=== PATIENT | male | born 1985 | race Caucasian/White ===

== ENCOUNTER 2017-06-23 09:04 | Emergency (ER) | payer SELFPAY ==
[2017-06-23 09:06] VITALS: BP 154/106; PULSE 90; RESP 16; TEMP 97.5; O2SAT 97
[2017-06-23] MEDS ORDERED: DEXAMETHASONE SOD PHOS 20 MG/5 ML VIAL IV ONE (10:00)
--- NOTE | 2017-06-23 10:43 | PD ---
HPI . Leg pain Chief Complaint: Pain: Acute or Chronic Time Seen by Provider: 09:35 Travel History International Travel<30 days: No Contact w/Intl Traveler<30days: No Traveled to known affect area: No History of Present Illness HPI This patient presents with the chief complaint of bilateral lower leg pain. Onset was 2 or 3 days ago. He states that he had a mild back injury last week and was seen by chiropractor for adjustment. His back seem to be better. However, he subsequently developed a deep pain in both lower legs from the knees down. The pain has been getting progressively worse. There have been no modifying factors. He states that he now feels weak. He denies any previous similar history. He has not had any bowel or bladder incontinence. He has not been running a fever. PFSH Past Medical History Tetanus Vaccination: > 5 Years Influenza Vaccination: No Social History Alcohol Use: Yes (4-5 beers daily) Tobacco Use: Yes (1/2ppd) Allergies-Medications (Allergen,Severity, Reaction): Coded Allergies: No Known Drug Allergies (Verified Allergy, Unknown, 06/23/17) Reported Meds & Prescriptions Reported Meds & Active Scripts Active No Active Prescriptions or Reported Medications Review of Systems Except as stated in HPI: all other systems reviewed are Neg Physical Exam Narrative GENERAL: Awake and alert and in no acute distress. SKIN: Warm and dry. HEAD: Normocephalic/atraumatic. EYES: Pupils are equal. Extraocular movements are intact. NECK: Normal range of motion. CARDIOVASCULAR: Regular rate and rhythm. RESPIRATORY: Nonlabored respirations. MUSCULOSKELETAL: No tenderness to percussion of the spine. Straight leg raise bilaterally causes leg pain. NEUROLOGICAL: Nonfocal. PSYCHIATRIC: Appropriate mood and affect. Data Data Last Documented VS Vital Signs Date Time Temp Pulse Resp B/P (MAP) Pulse Ox O2 Delivery O2 Flow Rate FiO2 06/23/17 12:10 82 16 127/84 (98) 99 Room Air 06/23/17 09:06 97.5 Orders Orders ^ Saline Lock (06/23/17 09:51) Dexamethasone Inj (Decadron Inj) (06/23/17 10:00) Mri L Spine W/O Contrast (06/23/17 09:51) MDM Medical Decision Making Medical Screen Exam Complete: Yes Emergency Medical Condition: Yes Differential Diagnosis Differential diagnosis of leg pain includes but is not limited to lumbar radiculopathy, arthritis, myalgias, DVT. Narrative Course This patient presents with bilateral lower leg pain. This was preceded by back pain. I am concerned about an HNP. MRI has been ordered. Pain medication was offered but declined. He would like to have some steroids. Last Impressions Lumbar Spine MRI 06/23/17 0951 Signed Impressions: Service Date/Time: Friday, June 23, 2017 12:03 - CONCLUSION: 1. Moderate- sized central disc protrusion at L4-5. 2. Mild to moderate broad-based disc protrusion at L5-S1 with bilateral foraminal encroachment. 3. No acute bony abnormality. Jacky Posey MD The patient will be discharged home on steroids with a referral to Dr. Holt. Diagnosis Primary Impression: Lumbar disc disease with radiculopathy Referrals: Ric Holt MD Patient Instructions: General Instructions, Lumbar Disc Herniation (DC) Med/Other Pt SpecificInfo: Prescription(s) given Scripts Prednisone (Prednisone) 50 Mg Tab 50 MG PO DAILY for 5 Days, #5 TAB 0 Refills Prov: Jaylin Riggins MD 06/23/17 Disposition: 01 DISCHARGE HOME Condition: Stable Jaylin Riggins MD June 23, 2017 10:43
[2017-06-23 12:10] VITALS: BP 127/84; PULSE 82; RESP 16; O2SAT 99
--- NOTE | 2017-06-23 12:25 | RADRPT ---
EXAM DATE/TIME: 06/23/2017 12:03 [facility] COMPARISON: No previous studies available for comparison. INDICATIONS : Pain. MEDICAL HISTORY : None. SURGICAL HISTORY : Toe surgery ENCOUNTER: Initial ACUITY: 2 day PAIN SCORE: 4/10 LOCATION: back TECHNIQUE: Multiplanar multisequence MRI of the lumbar spine was performed without contrast. FINDINGS: The most caudal appearing lumbar vertebra is numbered as L5. VERTEBRAE: Homogeneous signal. Normal alignment. CONUS: Normal level and configuration. T12-L1: The thecal sac has a normal diameter. No evidence of disc bulge or protrusion. The neural foramina are patent bilaterally. L1-L2: The thecal sac has a normal diameter. No evidence of disc bulge or protrusion. The neural foramina are patent bilaterally. L2-L3: The thecal sac has a normal diameter. No evidence of disc bulge or protrusion. The neural foramina are patent bilaterally. L3-L4: The thecal sac has a normal diameter. No evidence of disc bulge or protrusion. The neural foramina are patent bilaterally. L4-L5: Mild degenerative disease is noted. A moderate-sized central disc protrusion with anterior epidural e ffacement is noted. There is no significant thecal sac compression. There are no lateralizing compone nt extending into the neural foramina. L5-S1: Mild to moderate broad-based disc protrusion is identified. There is bilateral neural foraminal effac ement from disc protrusion resulting in moderate foraminal stenosis. There is no significant spinal s tenosis. CONCLUSION: 1. Moderate-sized central disc protrusion at L4-5. 2. Mild to moderate broad-based disc protrusion at L5-S1 with bilateral foraminal encroachment. 3. No acute bony abnormality. Jacky Posey MD on June 23, 2017 at 12:20 Board Certified Radiologist. This report was verified electronically.
[2017-06-23] MEDS ORDERED: PRED50 PO (12:49)
== END 2017-06-23 13:00 | disposition home or self-care (01) ==
LOC: PHED 09:04
DX: M51.16 Intervertebral disc disorders with radiculopathy, lumbar region (principal); F17.200 Nicotine dependence, unspecified, uncomplicated
CPT/HCPCS: 72148; 96374; 99284; J1100

== ENCOUNTER 2017-07-12 01:18 | Emergency (ER) | payer SELFPAY ==
[~2017-07-12] VITALS: Ht 177.8 cm; Wt 98.6 kg
[~2017-07-12 01:18] MED LIST: PRED50 PO
[2017-07-12 01:21] VITALS: BP 133/88; PULSE 112; RESP 18; TEMP 98.2; O2SAT 98
[2017-07-12] MEDS ORDERED: LIDOCAINE HCL 1% 20 ML VIAL INFIL ONE (02:15)
[2017-07-12] MEDS ORDERED: AUGM875T3 PO (02:44)
--- NOTE | 2017-07-12 02:47 | PD ---
HPI Chief Complaint: Bite or Sting Time Seen by Provider: 02:03 Travel History International Travel<30 days: No Contact w/Intl Traveler<30days: No Traveled to known affect area: No History of Present Illness HPI The patient is a 32-year-old male that at approximately 11 PM try to put his dog in the cage and the dog bit his left middle finger. The patient is a go, right-hand dominant. There are several flaps on the end of the finger that he wants held down. He is told that he could have this done without sutures and simply on antibiotics but he preferred to have it tacked down with sutures. He has a pain of 2/10, throbbing pain. He is up-to-date on tetanus. [facility] Past Medical History Medical History: Denies Significant Hx Diminished Hearing: No Immunizations Current: No Tetanus Vaccination: > 5 Years Influenza Vaccination: No Social History Alcohol Use: Yes (4-5 beers daily) Tobacco Use: Yes (1/2ppd) Substance Use: No Allergies-Medications (Allergen,Severity, Reaction): Coded Allergies: No Known Drug Allergies (Verified Allergy, Unknown, 07/12/17) Reported Meds & Prescriptions Reported Meds & Active Scripts Active No Active Prescriptions or Reported Medications Review of Systems Except as stated in HPI: all other systems reviewed are Neg Physical Exam Narrative GENERAL: Well-nourished, well-developed patient in minimal apparent distress with his left long finger discomfort. His vital signs show heart rate of 112 but are otherwise normal. SKIN: Focused skin assessment warm/dry. There are 2 flap lacerations, 3 cm total in length on the palmar side of the left third finger, distal phalanx. These tend to ride up and cannot be bandaged down into place. HEAD: Normocephalic. EYES: No scleral icterus. No injection or drainage. NECK: Supple, trachea midline. No JVD or lymphadenopathy. CARDIOVASCULAR: Regular rate and rhythm without murmurs, gallops, or rubs. RESPIRATORY: Breath sounds equal bilaterally. No accessory muscle use. GASTROINTESTINAL: Abdomen soft, non-tender, nondistended. MUSCULOSKELETAL: No cyanosis, or edema. BACK: Nontender without obvious deformity. No CVA tenderness. Data Data Last Documented VS Vital Signs Date Time Temp Pulse Resp B/P (MAP) Pulse Ox O2 Delivery O2 Flow Rate FiO2 07/12/17 01:21 98.2 112 18 133/88 (103) 98 Orders Orders Ed Discharge Order (07/12/17 02:03) Lidocaine 1% Inj (Xylocaine 1% Inj) (07/12/17 02:15) MDM Medical Decision Making Medical Screen Exam Complete: Yes Emergency Medical Condition: Yes Medical Record Reviewed: Yes Differential Diagnosis Laceration needing suturing, dog bite not needing suturing, Narrative Course The ulceration does not oppose well with simple bandaging. The patient wants the laceration flap supposed and we will give the patient antibiotics and he will have to keep the wound clean and dry and he is told about the risk of infection which is high with a dog bite. Procedures Procedure Narrative Under sterile technique, the finger was soaked in a dilute Betadine solution. A digital block was done and using 5-0 nylon, the flap lacerations were sewn up using 6 stitches. This opposed the skin edges adequately. The patient will be given Augmentin 875 twice daily for 10 days. He needs to return the emergency department in 12 days for suture removal or immediately if he has any problems. Diagnosis Primary Impression: Dog bite of finger Additional Instructions: Return to the emergency department immediately if you have any problems. At night elevate the hand above your heart because this increases blood circulation and decreases chance of infection. You already have a significant chance of infection with a dog bite. Med/Other Pt SpecificInfo: Prescription(s) given Scripts Amoxicillin-Clavulanate (Augmentin) 875-125 Mg Tab 1 TAB PO BID for Infection, #20 TAB 0 Refills Prov: Jovanni Lara MD 07/12/17 Disposition: 01 DISCHARGE HOME Condition: Stable Jovanni Lara MD Jul 12, 2017 02:47
[2017-07-12] MEDS ORDERED: AMOXICILLIN/CLAVULANATE K 875 MG TAB PO ONE (03:00)
== END 2017-07-12 02:58 | disposition home or self-care (01) ==
LOC: PHED 01:18
DX: S61.253A Open bite of left middle finger without damage to nail, initial encounter (principal); F17.200 Nicotine dependence, unspecified, uncomplicated; W54.0XXA Bitten by dog, initial encounter
CPT/HCPCS: 12002

== ENCOUNTER 2017-10-28 14:42 | Inpatient (IN) ==
[2017-10-28 15:28] LABS: Baso # (Auto) 0.1 th/mm3 (0.0-0.2); Baso % (Auto) 1.7 % (0.0-2.0); Eos # (Auto) 0.1 th/mm3 (0.0-0.4); Eos % (Auto) 0.9 % (0.0-4.0); Hematocrit 43.7 % (39.0-51.0); Hemoglobin 15.3 gm/dL (13.0-17.0); Lymph # (Auto) 1.8 th/mm3 (1.0-4.8); Lymph % (Auto) 21.6 % (9.0-44.0); Mean Corpuscular HGB Conc 35.1 % (32.0-36.0); Mean Corpuscular Hemoglobin 39.3 pg (27.0-34.0); Mean Platelet Volume 7.2 fL (7.0-11.0); Mono # (Auto) 0.7 th/mm3 (0.0-0.9); Mono % (Auto) 7.9 % (0.0-8.0); Neut # (Auto) 5.6 th/mm3 (1.8-7.7); Neut % (Auto) 67.9 % (16.0-70.0); Platelet Count 257 th/mm3 (150-450); Red Cell Distribution Width 15.1 % (11.6-17.2); White Blood Count 8.3 th/mm3 (4.0-11.0)
[2017-10-28 15:53] LABS: Alanine Aminotransferase 48 U/L (12-78); Alkaline Phosphatase 87 U/L (45-117); Anion Gap 10 meq/L (5-15); Aspartate Aminotransferase 53 U/L (15-37); Blood Urea Nitrogen 3 mg/dL (7-18); Chloride 97 meq/L (98-107); Glomerular Filtration Rate Greater Than 89 mL/min (>89); Glucose,Random 102 mg/dL (74-106); Sodium 137 meq/L (136-145); Total Protein 7.1 g/dL (6.4-8.2)
[2017-10-28 15:54] LABS: Potassium 2.7 meq/L (3.5-5.1)
--- NOTE | 2017-10-28 16:03 | US ---
EXAM DATE: 10/28/2017 3:59 PM EDT AGE/SEX: 32 years / Male INDICATIONS: Left leg pain and swelling. CLINICAL DATA: This is the patient's initial encounter. Patient reports that signs and symptoms have been present for 3 weeks and indicates a pain score of 4/10. MEDICAL/SURGICAL HISTORY: . Left leg pain and swelling. . Toe surgery. COMPARISON: No prior exams available for comparison. TECHNIQUE: Venous ultrasound of both lower extremities was performed from the inguinal ligament to t he proximal calf. Real-time, color Doppler and spectral tracing, compression and augmentation techni ques were used. FINDINGS: Occlusive deep venous thrombus is noted within the left proximal, mid and distal superfici al femoral, peroneal and posterior tibial veins and nonocclusive deep venous thrombus is noted within the popliteal vein. Left iliac and common femoral veins demonstrate normal color flow. CONCLUSION: 1. Occlusive deep venous thrombus within the left proximal, main and distal superficial femoral, per joshi and posterior tibial veins and nonocclusive deep venous thrombus within the left popliteal vein . Electronically signed by: Emory Garrison MD 10/28/2017 4:02 PM EDT
--- NOTE | 2017-10-28 16:33 | ED ---
HPI General Chief complaint: Extremity Problem,Nontraumatic Stated complaint: left leg pain Time Seen by Provider: 10/28/17 15:14 History of Present Illness HPI narrative: 32 male here for evaluation of left leg pain/swelling for the last month, he has no fever or chills, no trauma, no chest pain. No cough or shortness of breath. He never had these problems in the past, he has no abdominal pain nor nausea or vomiting or any other symptoms. Related Data Home Medications Medication Instructions Recorded Confirmed No Known Home Medications 10/28/17 10/28/17 Previous Rx's Medication Instructions Recorded folic acid 1 mg PO DAILY #30 tab 10/30/17 rivaroxaban [Xarelto] 15 mg PO BID #41 tab 10/30/17 thiamine HCl (vitamin B1) 100 mg PO DAILY #30 tab 10/30/17 Allergies Allergy/AdvReac Type Severity Reaction Status Date / Time No Known Allergies Allergy Verified 10/28/17 14:56 Review of Systems ROS: all other systems reviewed are negative [facility] Medical History Medical History Herniated disc (Acute) Surgical History Surgical History History of toe surgery (Acute) Family History Family History Other Family history non-contributory Social History Social History Substance History: No History of Abuse Second Hand Smoke Exposure: Yes Smoking Status: Current every day smoker Tobacco Type: Cigarettes How Often Do You Have a Drink Containing Alcohol: 4 or more times a week Immunization History Tetanus Immunization: Unsure Exam Narrative Exam Narrative: GENERAL: Alert oriented 3 no acute distress. SKIN: Focused skin assessment warm/dry. HEAD: Atraumatic. Normocephalic. EYES: Pupils equal and round. No scleral icterus. No injection or drainage. ENT: No nasal bleeding or discharge. Mucous membranes pink and moist. NECK: Trachea midline. No JVD. CARDIOVASCULAR: Regular rate and rhythm. No murmur appreciated. RESPIRATORY: No accessory muscle use. Clear to auscultation. Breath sounds equal bilaterally. GASTROINTESTINAL: Abdomen soft, non-tender, nondistended. Hepatic and splenic margins not palpable. MUSCULOSKELETAL: Nonpitting edema left leg, mild calf tenderness, no obvious deformities. No clubbing. No cyanosis. NEUROLOGICAL: Awake and alert. No obvious cranial nerve deficits. Motor grossly within normal limits. Normal speech. PSYCHIATRIC: Appropriate mood and affect; insight and judgment normal. Course Initial Documented Vital Signs Temperature 99.5 F 10/28/17 14:51 Pulse Rate 122 H 10/28/17 14:51 Respiratory Rate 16 10/28/17 14:51 Blood Pressure 130/73 10/28/17 14:51 Pulse Oximetry 96 10/28/17 14:51 Last Documented Vital Signs Temperature 97.1 F L 10/30/17 08:00 Pulse Rate 84 10/30/17 08:00 Respiratory Rate 19 10/30/17 08:00 Blood Pressure 134/91 H 10/30/17 08:00 Pulse Oximetry 98 10/30/17 08:00 Medical Decision Making MDM Narrative Medical decision making narrative: 32 male here for evaluation of left leg edema , he has tachycardia, left lower venous Doppler shows DVT, bilateral PE on CTA, hypokalemia of 2.7 patient received 60 mEq p.o. potassium, patient BMP is normal troponin is normal no evidence of right ventricular strain. Patient will be admitted on heparin drip. Medical Screen Exam Complete: Yes Emergency Medical Condition: Yes Lab Data Result diagrams: 10/30/17 04:50 10/30/17 04:50 Lab Results 10/28/17 10/28/17 10/28/17 Range/Units 15:05 15:05 19:30 CBC w Diff Auto diff final WBC 8.3 (4.0-11.0) th/mm3 RBC 3.90 L (4.50-5.90) mil/mm3 Hgb 15.3 (13.0-17.0) gm/dL Hct 43.7 (39.0-51.0) % MCV 112.0 H (80.0-100.0) fL MCH 39.3 H (27.0-34.0) pg MCHC 35.1 (32.0-36.0) % RDW 15.1 (11.6-17.2) % Plt Count 257 (150-450) th/mm3 MPV 7.2 (7.0-11.0) fL Neut % (Auto) 67.9 (16.0-70.0) % Lymph % (Auto) 21.6 (9.0-44.0) % [place] % (Auto) 7.9 (0.0-8.0) % Eos % (Auto) 0.9 (0.0-4.0) % Baso % (Auto) 1.7 (0.0-2.0) % Neut # (Auto) 5.6 (1.8-7.7) th/mm3 Lymph # (Auto) 1.8 (1.0-4.8) th/mm3 [place] # (Auto) 0.7 (0.0-0.9) th/mm3 Eos # (Auto) 0.1 (0.0-0.4) th/mm3 Baso # (Auto) 0.1 (0.0-0.2) th/mm3 WBC Differential . Differential Comment . PT (9.8-11.6) sec INR Ratio APTT (24.3-30.1) sec Thrombin Time Lupus Anticoagulant (NOT DETECTED) LA PTT Screen (< OR = 40) seconds dRVVT Screen (< OR = 45) seconds LA dRVVT Confirm dRVVT Mix Hexagonal Phase Confirm (NEGATIVE) Protein C Antigen (70-150) % APC Resistance (> OR = 2.1) ratio Protein S Activity (65 - 160) % Antithrombin III Activ (80-120) % normal Factor V Leiden Mutat (Negative) Factor V Leiden Interp Fact V Leiden Review By Factor VIII Activity (50-180) % normal Sodium 137 (136-145) meq/L Potassium 2.7 L* (3.5-5.1) meq/L Chloride 97 L (98-107) meq/L Carbon Dioxide 30.0 (21.0-32.0) meq/L Anion Gap 10 (5-15) meq/L BUN 3 L (7-18) mg/dL Creatinine 0.73 (0.60-1.30) mg/dL Estimated GFR Greater than 89 (>89) mL/min Random Glucose 102 (74-106) mg/dL Calcium 8.0 L (8.5-10.1) mg/dL Magnesium (1.5-2.5) mg/dL Total Bilirubin 0.8 (0.2-1.0) mg/dL AST 53 H (15-37) U/L ALT 48 (12-78) U/L Alkaline Phosphatase 87 (45-117) U/L Troponin I Less than 0.02 L (0.02-0.05) ng/mL B-Natriuretic Peptide (0-100) pg/mL Total Protein 7.1 (6.4-8.2) g/dL Albumin 3.0 L (3.4-5.0) g/dL Homocysteine Cardiovas (<11.4) umol/L Beta-2-GPI IgG Ab (< OR = 20) SGU Beta-2-GPI IgA Ab (< OR = 20) ZION Beta-2-GPI IgM Ab (< OR = 20) [facility] Phosphatidylserine IgG (0-10.9) U/mL Phosphatidylserine IgA (0-19.9) U/mL Phosphatidylserine IgM (0-24.9) U/mL Anti-Cardiolipin IgG Ab GPL Anti-Cardiolipin IgM Ab MPL MTHFR Mutation Detect Prothrombin [id number] Mut 10/28/17 10/28/17 10/29/17 Range/Units 19:30 20:37 03:10 CBC w Diff Auto diff final WBC 8.5 (4.0-11.0) th/mm3 RBC 3.49 L (4.50-5.90) mil/mm3 Hgb 13.8 (13.0-17.0) gm/dL Hct 39.8 (39.0-51.0) % MCV 113.9 H (80.0-100.0) fL MCH 39.6 H (27.0-34.0) pg MCHC 34.8 (32.0-36.0) % RDW 15.7 (11.6-17.2) % Plt Count 213 (150-450) th/mm3 MPV 7.8 (7.0-11.0) fL Neut % (Auto) 72.5 H (16.0-70.0) % Lymph % (Auto) 20.2 (9.0-44.0) % [place] % (Auto) 4.5 (0.0-8.0) % Eos % (Auto) 1.2 (0.0-4.0) % Baso % (Auto) 1.6 (0.0-2.0) % Neut # (Auto) 6.2 (1.8-7.7) th/mm3 Lymph # (Auto) 1.7 (1.0-4.8) th/mm3 [place] # (Auto) 0.4 (0.0-0.9) th/mm3 Eos # (Auto) 0.1 (0.0-0.4) th/mm3 Baso # (Auto) 0.1 (0.0-0.2) th/mm3 WBC Differential . Differential Comment . PT 10.8 (9.8-11.6) sec INR 1.1 Ratio APTT 22.9 L (24.3-30.1) sec Thrombin Time Lupus Anticoagulant (NOT DETECTED) LA PTT Screen (< OR = 40) seconds dRVVT Screen (< OR = 45) seconds LA dRVVT Confirm dRVVT Mix Hexagonal Phase Confirm (NEGATIVE) Protein C Antigen (70-150) % APC Resistance (> OR = 2.1) ratio Protein S Activity (65 - 160) % Antithrombin III Activ (80-120) % normal Factor V Leiden Mutat (Negative) Factor V Leiden Interp Fact V Leiden Review By Factor VIII Activity (50-180) % normal Sodium (136-145) meq/L Potassium (3.5-5.1) meq/L Chloride (98-107) meq/L Carbon Dioxide (21.0-32.0) meq/L Anion Gap (5-15) meq/L BUN (7-18) mg/dL Creatinine (0.60-1.30) mg/dL Estimated GFR (>89) mL/min Random Glucose (74-106) mg/dL Calcium (8.5-10.1) mg/dL Magnesium (1.5-2.5) mg/dL Total Bilirubin (0.2-1.0) mg/dL AST (15-37) U/L ALT (12-78) U/L Alkaline Phosphatase (45-117) U/L Troponin I (0.02-0.05) ng/mL B-Natriuretic Peptide 9 (0-100) pg/mL Total Protein (6.4-8.2) g/dL Albumin (3.4-5.0) g/dL Homocysteine Cardiovas (<11.4) umol/L Beta-2-GPI IgG Ab (< OR = 20) [facility]U Beta-2-GPI IgA Ab (< OR = 20) ZION Beta-2-GPI IgM Ab (< OR = 20) [facility] Phosphatidylserine IgG (0-10.9) U/mL Phosphatidylserine IgA (0-19.9) U/mL Phosphatidylserine IgM (0-24.9) U/mL Anti-Cardiolipin IgG Ab GPL Anti-Cardiolipin IgM Ab MPL MTHFR Mutation Detect Prothrombin [id number] Mut 10/29/17 10/29/17 10/29/17 Range/Units 03:10 03:10 09:21 CBC w Diff WBC (4.0-11.0) th/mm3 RBC (4.50-5.90) mil/mm3 Hgb (13.0-17.0) gm/dL Hct (39.0-51.0) % MCV (80.0-100.0) fL MCH (27.0-34.0) pg MCHC (32.0-36.0) % RDW (11.6-17.2) % Plt Count (150-450) th/mm3 MPV (7.0-11.0) fL Neut % (Auto) (16.0-70.0) % Lymph % (Auto) (9.0-44.0) % [place] % (Auto) (0.0-8.0) % Eos % (Auto) (0.0-4.0) % Baso % (Auto) (0.0-2.0) % Neut # (Auto) (1.8-7.7) th/mm3 Lymph # (Auto) (1.0-4.8) th/mm3 [place] # (Auto) (0.0-0.9) th/mm3 Eos # (Auto) (0.0-0.4) th/mm3 Baso # (Auto) (0.0-0.2) th/mm3 WBC Differential Differential Comment PT (9.8-11.6) sec INR Ratio APTT 38.7 H D (24.3-30.1) sec Thrombin Time Lupus Anticoagulant (NOT DETECTED) LA PTT Screen (< OR = 40) seconds dRVVT Screen (< OR = 45) seconds LA dRVVT Confirm dRVVT Mix Hexagonal Phase Confirm (NEGATIVE) Protein C Antigen (70-150) % APC Resistance (> OR = 2.1) ratio Protein S Activity (65 - 160) % Antithrombin III Activ (80-120) % normal Factor V Leiden Mutat (Negative) Factor V Leiden Interp Fact V Leiden Review By Factor VIII Activity (50-180) % normal Sodium 135 L 138 (136-145) meq/L Potassium 2.8 L* 3.1 L (3.5-5.1) meq/L Chloride 96 L 96 L (98-107) meq/L Carbon Dioxide 32.5 H 32.6 H (21.0-32.0) meq/L Anion Gap 7 9 (5-15) meq/L BUN 6 L 5 L (7-18) mg/dL Creatinine 0.72 0.86 (0.60-1.30) mg/dL Estimated GFR Greater than 89 Greater than 89 (>89) mL/min Random Glucose 111 H 139 H (74-106) mg/dL Calcium 7.6 L 7.8 L (8.5-10.1) mg/dL Magnesium 1.5 (1.5-2.5) mg/dL Total Bilirubin 1.4 H (0.2-1.0) mg/dL AST 39 H (15-37) U/L ALT 42 (12-78) U/L Alkaline Phosphatase 81 (45-117) U/L Troponin I (0.02-0.05) ng/mL B-Natriuretic Peptide (0-100) pg/mL Total Protein 6.3 L D (6.4-8.2) g/dL Albumin 2.7 L (3.4-5.0) g/dL Homocysteine Cardiovas (<11.4) umol/L Beta-2-GPI IgG Ab (< OR = 20) SGU Beta-2-GPI IgA Ab (< OR = 20) ZION Beta-2-GPI IgM Ab (< OR = 20) [facility] Phosphatidylserine IgG (0-10.9) U/mL Phosphatidylserine IgA (0-19.9) U/mL Phosphatidylserine IgM (0-24.9) U/mL Anti-Cardiolipin IgG Ab GPL Anti-Cardiolipin IgM Ab MPL MTHFR Mutation Detect Prothrombin [id number] Mut 10/29/17 10/29/17 10/29/17 Range/Units 10:42 12:09 12:09 CBC w Diff WBC (4.0-11.0) th/mm3 RBC (4.50-5.90) mil/mm3 Hgb (13.0-17.0) gm/dL Hct (39.0-51.0) % MCV (80.0-100.0) fL MCH (27.0-34.0) pg MCHC (32.0-36.0) % RDW (11.6-17.2) % Plt Count (150-450) th/mm3 MPV (7.0-11.0) fL Neut % (Auto) (16.0-70.0) % Lymph % (Auto) (9.0-44.0) % [place] % (Auto) (0.0-8.0) % Eos % (Auto) (0.0-4.0) % Baso % (Auto) (0.0-2.0) % Neut # (Auto) (1.8-7.7) th/mm3 Lymph # (Auto) (1.0-4.8) th/mm3 [place] # (Auto) (0.0-0.9) th/mm3 Eos # (Auto) (0.0-0.4) th/mm3 Baso # (Auto) (0.0-0.2) th/mm3 WBC Differential Differential Comment PT (9.8-11.6) sec INR Ratio APTT 35.9 H (24.3-30.1) sec Thrombin Time ND Lupus Anticoagulant (NOT DETECTED) LA PTT Screen 46 H (< OR = 40) seconds dRVVT Screen 29 (< OR = 45) seconds LA dRVVT Confirm ND dRVVT Mix ND Hexagonal Phase Confirm Negative (NEGATIVE) Protein C Antigen 45 L (70-150) % APC Resistance 1.5 L (> OR = 2.1) ratio Protein S Activity 146 (65 - 160) % Antithrombin III Activ 76 L (80-120) % normal Factor V Leiden Mutat Heterozygous (Negative) Factor V Leiden Interp . Fact V Leiden Review By Lora mares m.d. Factor VIII Activity 128 (50-180) % normal Sodium (136-145) meq/L Potassium (3.5-5.1) meq/L Chloride (98-107) meq/L Carbon Dioxide (21.0-32.0) meq/L Anion Gap (5-15) meq/L BUN (7-18) mg/dL Creatinine (0.60-1.30) mg/dL Estimated GFR (>89) mL/min Random Glucose (74-106) mg/dL Calcium (8.5-10.1) mg/dL Magnesium (1.5-2.5) mg/dL Total Bilirubin (0.2-1.0) mg/dL AST (15-37) U/L ALT (12-78) U/L Alkaline Phosphatase (45-117) U/L Troponin I (0.02-0.05) ng/mL B-Natriuretic Peptide (0-100) pg/mL Total Protein (6.4-8.2) g/dL Albumin (3.4-5.0) g/dL Homocysteine Cardiovas 20.1 H (<11.4) umol/L Beta-2-GPI IgG Ab <9 (< OR = 20) [facility]U Beta-2-GPI IgA Ab <9 (< OR = 20) ZION Beta-2-GPI IgM Ab <9 (< OR = 20) [facility] Phosphatidylserine IgG Less than 10.0 (0-10.9) U/mL Phosphatidylserine IgA Less than 20.0 (0-19.9) U/mL Phosphatidylserine IgM Less than 25.0 (0-24.9) U/mL Anti-Cardiolipin IgG Ab <9.4 GPL Anti-Cardiolipin IgM Ab <9.4 MPL MTHFR Mutation Detect Prothrombin [id number] Mut 10/29/17 10/30/17 10/30/17 Range/Units 17:55 02:30 04:50 CBC w Diff WBC (4.0-11.0) th/mm3 RBC (4.50-5.90) mil/mm3 Hgb (13.0-17.0) gm/dL Hct (39.0-51.0) % MCV (80.0-100.0) fL MCH (27.0-34.0) pg MCHC (32.0-36.0) % RDW (11.6-17.2) % Plt Count (150-450) th/mm3 MPV (7.0-11.0) fL Neut % (Auto) (16.0-70.0) % Lymph % (Auto) (9.0-44.0) % [place] % (Auto) (0.0-8.0) % Eos % (Auto) (0.0-4.0) % Baso % (Auto) (0.0-2.0) % Neut # (Auto) (1.8-7.7) th/mm3 Lymph # (Auto) (1.0-4.8) th/mm3 [place] # (Auto) (0.0-0.9) th/mm3 Eos # (Auto) (0.0-0.4) th/mm3 Baso # (Auto) (0.0-0.2) th/mm3 WBC Differential Differential Comment PT (9.8-11.6) sec INR Ratio APTT 39.3 H 37.1 H (24.3-30.1) sec Thrombin Time Lupus Anticoagulant (NOT DETECTED) LA PTT Screen (< OR = 40) seconds dRVVT Screen (< OR = 45) seconds LA dRVVT Confirm dRVVT Mix Hexagonal Phase Confirm (NEGATIVE) Protein C Antigen (70-150) % APC Resistance (> OR = 2.1) ratio Protein S Activity (65 - 160) % Antithrombin III Activ (80-120) % normal Factor V Leiden Mutat (Negative) Factor V Leiden Interp Fact V Leiden Review By Factor VIII Activity (50-180) % normal Sodium 138 (136-145) meq/L Potassium 3.3 L (3.5-5.1) meq/L Chloride 100 (98-107) meq/L Carbon Dioxide 32.0 (21.0-32.0) meq/L Anion Gap 6 (5-15) meq/L BUN 4 L (7-18) mg/dL Creatinine 0.66 (0.60-1.30) mg/dL Estimated GFR Greater than 89 (>89) mL/min Random Glucose 105 (74-106) mg/dL Calcium 7.9 L (8.5-10.1) mg/dL Magnesium 1.8 (1.5-2.5) mg/dL Total Bilirubin 0.8 (0.2-1.0) mg/dL AST 29 (15-37) U/L ALT 33 (12-78) U/L Alkaline Phosphatase 68 (45-117) U/L Troponin I (0.02-0.05) ng/mL B-Natriuretic Peptide (0-100) pg/mL Total Protein 5.9 L (6.4-8.2) g/dL Albumin 2.5 L (3.4-5.0) g/dL Homocysteine Cardiovas (<11.4) umol/L Beta-2-GPI IgG Ab (< OR = 20) [facility]U Beta-2-GPI IgA Ab (< OR = 20) [facility]ION Beta-2-GPI IgM Ab (< OR = 20) [facility] Phosphatidylserine IgG (0-10.9) U/mL Phosphatidylserine IgA (0-19.9) U/mL Phosphatidylserine IgM (0-24.9) U/mL Anti-Cardiolipin IgG Ab GPL Anti-Cardiolipin IgM Ab MPL MTHFR Mutation Detect Prothrombin [id number] Mut 10/30/17 Range/Units 04:50 CBC w Diff WBC 8.2 (4.0-11.0) th/mm3 RBC 3.37 L (4.50-5.90) mil/mm3 Hgb 13.2 (13.0-17.0) gm/dL Hct 38.1 L (39.0-51.0) % MCV 113.2 H (80.0-100.0) fL MCH 39.3 H (27.0-34.0) pg MCHC 34.8 (32.0-36.0) % RDW 16.3 (11.6-17.2) % Plt Count 210 (150-450) th/mm3 MPV 8.1 (7.0-11.0) fL Neut % (Auto) (16.0-70.0) % Lymph % (Auto) (9.0-44.0) % [place] % (Auto) (0.0-8.0) % Eos % (Auto) (0.0-4.0) % Baso % (Auto) (0.0-2.0) % Neut # (Auto) (1.8-7.7) th/mm3 Lymph # (Auto) (1.0-4.8) th/mm3 [place] # (Auto) (0.0-0.9) th/mm3 Eos # (Auto) (0.0-0.4) th/mm3 Baso # (Auto) (0.0-0.2) th/mm3 WBC Differential Differential Comment PT (9.8-11.6) sec INR Ratio APTT (24.3-30.1) sec Thrombin Time Lupus Anticoagulant (NOT DETECTED) LA PTT Screen (< OR = 40) seconds dRVVT Screen (< OR = 45) seconds LA dRVVT Confirm dRVVT Mix Hexagonal Phase Confirm (NEGATIVE) Protein C Antigen (70-150) % APC Resistance (> OR = 2.1) ratio Protein S Activity (65 - 160) % Antithrombin III Activ (80-120) % normal Factor V Leiden Mutat (Negative) Factor V Leiden Interp Fact V Leiden Review By Factor VIII Activity (50-180) % normal Sodium (136-145) meq/L Potassium (3.5-5.1) meq/L Chloride (98-107) meq/L Carbon Dioxide (21.0-32.0) meq/L Anion Gap (5-15) meq/L BUN (7-18) mg/dL Creatinine (0.60-1.30) mg/dL Estimated GFR (>89) mL/min Random Glucose (74-106) mg/dL Calcium (8.5-10.1) mg/dL Magnesium (1.5-2.5) mg/dL Total Bilirubin (0.2-1.0) mg/dL AST (15-37) U/L ALT (12-78) U/L Alkaline Phosphatase (45-117) U/L Troponin I (0.02-0.05) ng/mL B-Natriuretic Peptide (0-100) pg/mL Total Protein (6.4-8.2) g/dL Albumin (3.4-5.0) g/dL Homocysteine Cardiovas (<11.4) umol/L Beta-2-GPI IgG Ab (< OR = 20) [facility]U Beta-2-GPI IgA Ab (< OR = 20) [facility] Beta-2-GPI IgM Ab (< OR = 20) [facility] Phosphatidylserine IgG (0-10.9) U/mL Phosphatidylserine IgA (0-19.9) U/mL Phosphatidylserine IgM (0-24.9) U/mL Anti-Cardiolipin IgG Ab GPL Anti-Cardiolipin IgM Ab MPL MTHFR Mutation Detect Prothrombin [id number] Mut Imaging Data Radiologist's impression: Venous Doppler Study 10/28/17 15:14 CONCLUSION: 1. Occlusive deep venous thrombus within the left proximal, main and distal superficial femoral, peroneal and posterior tibial veins and nonocclusive deep venous thrombus within the left popliteal vein. Chest CTA 10/28/17 16:20 CONCLUSION: 1. Bilateral pulmonary emboli. 2. No mass or infiltrate. Discharge Plan Discharge Disposition Patient Disposition: 30 Still Patient Discharge Condition Condition: Stable Discharge Order Discharge Orders: Discharge Order (Routine); Ordered 10/30/17 Ordered By: Jason Steinberg Discharge Details Discharge Comment: discharge 2 hrs after xarelto. Ensure he gets starter pack of xarelto Physicians Team ED Provider: Avery Omer Primary Care Provider: Primary Care Tanja Ji Attending Provider: Jason Steinberg Other Providers: Cassidy Reese Status ED Status: Left Department Discharge Information Discharge Date/Time: 10/28/17 21:32
--- NOTE | 2017-10-28 18:50 | CT ---
EXAM DATE: 10/28/2017 6:36 PM EDT AGE/SEX: 32 years / Male INDICATIONS: Evaluate for embolism. Recently diagnosed lower extremity thrombosis. CLINICAL DATA: This is the patient's initial encounter. Patient reports that signs and symptoms have been present for 3 weeks and indicates a pain score of 0/10. MEDICAL/SURGICAL HISTORY: Deep venous thrombosis. None. RADIATION DOSE: 18.72 CTDI (mGy) COMPARISON: No prior exams available for comparison. TECHNIQUE: Volumetric scanning was performed using a multi-row detector CT scanner during bolus infu heather of 75 ml Omnipaque 350 (iohexol) nonionic water-soluble contrast as a single exam dose. The deon a was post processed with a variety of visualization algorithms including full volume maximum intensi ty projection and sliding thin slab reformation. Using automated exposure control and adjustment of t he mA and/or kV according to patient size, radiation dose was kept as low as reasonably achievable to obtain optimal diagnostic quality images. DICOM format image data is available electronically for r eview and comparison. FINDINGS: Pulmonary Arteries: There are filling defects within the right middle lobe and right lower lobe pulm onary arteries. Tiny filling defect in the left lower lobe, anterior segment. The left and right pul monary arteries are normal in diameter. Lung: No infiltrates seen. Effusion: None. Mediastinum: No evidence of mediastinal or hilar adenopathy. Other: The axilla is unremarkable. CONCLUSION: 1. Bilateral pulmonary emboli. 2. No mass or infiltrate. Electronically signed by: Winston Crews MD 10/28/2017 6:49 PM EDT
[2017-10-28] MEDS ORDERED: Heparin 10,000 UNITS/10 ML Vial (for IV use) IV.PUSH STA (19:51)
[2017-10-28 20:56] LABS: Activated Partial Thrombo Time 22.9 sec (24.3-30.1); INR 1.1 Ratio; Prothrombin Time 10.8 sec (9.8-11.6)
[2017-10-28] MEDS: Heparin Drip 25,000 UNIT/250 ML BAG IV.CONT PRN (21:13)
[2017-10-28] MEDS ORDERED: Bisacodyl 10 MG Supp RECTAL PRN (22:48)
[2017-10-28] MEDS ORDERED: Acetaminophen 325 MG Tablet PO PRN (22:48)
[2017-10-28] MEDS ORDERED: Sod Chloride 0.9% Inj 1,000 ML IV.CONT SCH (23:00)
[2017-10-29 03:22] LABS: Baso # (Auto) 0.1 th/mm3 (0.0-0.2); Baso % (Auto) 1.6 % (0.0-2.0); Eos # (Auto) 0.1 th/mm3 (0.0-0.4); Eos % (Auto) 1.2 % (0.0-4.0); Hematocrit 39.8 % (39.0-51.0); Hemoglobin 13.8 gm/dL (13.0-17.0); Lymph # (Auto) 1.7 th/mm3 (1.0-4.8); Lymph % (Auto) 20.2 % (9.0-44.0); Mean Corpuscular HGB Conc 34.8 % (32.0-36.0); Mean Corpuscular Hemoglobin 39.6 pg (27.0-34.0); Mean Corpuscular Volume 113.9 fL (80.0-100.0); Mean Platelet Volume 7.8 fL (7.0-11.0); Mono # (Auto) 0.4 th/mm3 (0.0-0.9); Mono % (Auto) 4.5 % (0.0-8.0); Neut # (Auto) 6.2 th/mm3 (1.8-7.7); Neut % (Auto) 72.5 % (16.0-70.0); Platelet Count 213 th/mm3 (150-450); Red Blood Count 3.49 mil/mm3 (4.50-5.90); Red Cell Distribution Width 15.7 % (11.6-17.2); White Blood Count 8.5 th/mm3 (4.0-11.0)
[2017-10-29] MEDS: Heparin Drip 25,000 UNIT/250 ML BAG IV.CONT PRN ×2 (04:00→10:10)
[2017-10-29 04:14] LABS: Alanine Aminotransferase 42 U/L (12-78); Albumin 2.7 g/dL (3.4-5.0); Alkaline Phosphatase 81 U/L (45-117); Anion Gap 7 meq/L (5-15); Aspartate Aminotransferase 39 U/L (15-37); Blood Urea Nitrogen 6 mg/dL (7-18); Calcium 7.6 mg/dL (8.5-10.1); Carbon Dioxide 32.5 meq/L (21.0-32.0); Chloride 96 meq/L (98-107); Glomerular Filtration Rate Greater Than 89 mL/min (>89); Glucose,Random 111 mg/dL (74-106); Sodium 135 meq/L (136-145); Total Protein 6.3 g/dL (6.4-8.2)
[2017-10-29 04:16] LABS: Potassium 2.8 meq/L (3.5-5.1)
[2017-10-29] MEDS ORDERED: Potassium Chloride 25 MEQ Effervescent Tablet PO ONE (04:22)
[2017-10-29 09:56] LABS: Chloride 96 meq/L (98-107); Potassium 3.1 meq/L (3.5-5.1); Sodium 138 meq/L (136-145)
[2017-10-29 09:59] LABS: Glomerular Filtration Rate Greater Than 89 mL/min (>89)
[2017-10-29 10:03] LABS: Anion Gap 9 meq/L (5-15); Carbon Dioxide 32.6 meq/L (21.0-32.0)
[2017-10-29 10:04] LABS: Calcium 7.8 mg/dL (8.5-10.1); Glucose,Random 139 mg/dL (74-106); Magnesium 1.5 mg/dL (1.5-2.5)
[2017-10-29 10:15] LABS: Blood Urea Nitrogen 5 mg/dL (7-18)
[2017-10-29] MEDS ORDERED: Haloperidol Inj 5 MG/ML Ampul IV.PUSH PRN (11:32)
[2017-10-29] MEDS ORDERED: LORazepam 1 MG Tablet PO PRN (11:32)
--- NOTE | 2017-10-29 11:46 | P.HP ---
History of Present Illness Primary Care Physician: No Primary Care Physician Chief Complaint: Left lower extremity pain History of Present Illness: This is a 32-year-old male with no significant past medical history. He presents to the emergency department complaining of left lower extremity pain and swelling which started about 3 weeks ago. Denies trauma. 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 Since then he has decreased his activity secondary to pain. He also noted he easily gets winded but denies chest pain and hemoptysis. No recent immobilization, prolonged plane rides and landed trips. About 5 months ago he developed lower back pain and was diagnosed with herniated disks. He had radiculopathy involving bilateral lower extremities but symptoms resolved after few days. ER workup shows DVT in the left lower extremity and bilateral PE on CTA. He has been started on heparin drip. All other systems reviewed negative. No family history of hypercoagulable state. Review of Systems All other systems reviewed negative except as stated in HPI PMFSH - History History Provided By: Patient - Medical History Medical History: Medical History (Last Updated 10/29/17 @ 11:39 by Jason Steinberg MD) Herniated disc - Surgical History Surgical History: Surgical History (Last Updated 10/29/17 @ 11:40 by Jason Steinberg MD) History of toe surgery - Family History Family History: Family History (Last Updated 10/29/17 @ 11:41 by Jason Steinberg MD) Other Family history non-contributory - Tobacco History Second Hand Smoke Exposure: Yes Tobacco Use In Past 30 Days: Yes Smoking Status: Current every day smoker Tobacco Type: Cigarettes - Alcohol History How Often Do You Have a Drink Containing Alcohol: 4 or more times a week - Substance Use History Substance History: No History of Abuse - Immunization History Tetanus Immunization: Unable to Assess Hx Influenza Vaccine This Season: No Medications and Allergies Active Medications: Active Medications Acetaminophen (Tylenol) 650 mg PO Q4H PRN PRN Reason: Temp > 100.4 Hydrocodone Bitart/Acetaminophen ([place] 5/325) 1 tab PO Q4H PRN PRN Reason: pain > 4 Last Admin: 10/29/17 10:13 Dose: 1 tab Bisacodyl (Dulcolax Supp) 10 mg RECTAL DAILY PRN PRN Reason: SEVERE CONSITIPATION Heparin Sodium/Dextrose (Heparin/D5w 25,000 U/250 Ml) 25,000 unit in 250 mls @ 0 mls/hr IV.CONT TITRATE PRN; Protocol PRN Reason: Per Protocol Last Admin: 10/29/17 10:10 Dose: 1,800 units/hr, 18 mls/hr Magnesium Oxide (Mag-Ox) 400 mg PO BID USMAN Ondansetron HCl (Zofran Inj) 4 mg IV.PUSH Q6H PRN PRN Reason: NAUSEA OR VOMITING Potassium Chloride (K-Dur) 60 meq PO ONCE ONE Stop: 10/29/17 11:14 Sennosides (Senokot) 17.2 mg PO Q12H PRN PRN Reason: Moderate Constipation Allergies Allergy/AdvReac Type Severity Reaction Status Date / Time No Known Allergies Allergy Verified 10/28/17 14:56 Home Medications Medication Instructions Recorded Confirmed Type No Known Home Medications 10/28/17 10/28/17 History Exam Vital signs: Vital Signs 10/28/17 14:51 10/28/17 15:10 10/28/17 19:45 Temperature 99.5 F Pulse Rate 122 H 117 H 102 H Respiratory Rate 16 18 18 Blood Pressure 130/73 103/82 117/79 Pulse Oximetry 96 97 96 10/28/17 21:30 10/29/17 00:00 10/29/17 04:00 Temperature 98.2 F 97.9 F 96.5 F L Pulse Rate 103 H 101 H 92 H Respiratory Rate 20 20 20 Blood Pressure 125/93 H 121/87 120/79 Pulse Oximetry 96 97 99 10/29/17 08:00 Temperature 97.6 F Pulse Rate 92 H Respiratory Rate 18 Blood Pressure 125/74 Pulse Oximetry 97 Intake & Output 10/28/17 10/29/17 10/29/17 18:59 06:59 18:59 Intake Total 3350 / 3350 1250 / 1250 Balance 3350 / 3350 1250 / 1250 Weight 95 kg 96.9 kg Intake: IV 250 / 250 1250 / 1250 Heparin/D5W 25,000 U/250 mL 25, 250 / 250 250 / 250 000 unit In 250 ml @ Per Protocol IV.CONT TITRATE PRN Rx #:[id number] NS Inj 1,000 ML @ 100 mls/hr IV 1000 / 1000 .CONT .Q10H USMAN Rx#:[id number] Oral 3100 / 3100 Other: # Voids 2 3 Date of Last Bowel Movement 10/28/17 10/28/17 Weight On Admission 95 kg Narrative: GENERAL: Well-developed, well-nourished in no distress SKIN: Warm and dry. HEAD: Atraumatic. Normocephalic. EYES: Pupils equal and round. No scleral icterus. No injection or drainage. ENT: No nasal bleeding or discharge. Mucous membranes pink and moist. NECK: Trachea midline. No JVD. CARDIOVASCULAR: Regular rate and rhythm. RESPIRATORY: No accessory muscle use. Clear to auscultation. Breath sounds equal bilaterally. GASTROINTESTINAL: Abdomen soft, non-tender, nondistended. MUSCULOSKELETAL: Extremities without clubbing, cyanosis, or edema. No obvious deformities. Left calf is swollen and tender NEUROLOGICAL: Awake and alert. No obvious cranial nerve deficits. Motor grossly within normal limits. Five out of 5 muscle strength in the arms and legs. Normal speech. PSYCHIATRIC: Appropriate mood and affect; insight and judgment normal. Results - Labs CBC & Chem 7: 10/29/17 03:10 10/29/17 09:21 Labs: Laboratory Results - last 24 hr 10/28/17 10/28/17 10/28/17 15:05 15:05 19:30 CBC w Diff Auto diff final WBC 8.3 RBC 3.90 L Hgb 15.3 Hct 43.7 MCV 112.0 H MCH 39.3 H MCHC 35.1 RDW 15.1 Plt Count 257 MPV 7.2 Neut % (Auto) 67.9 Lymph % (Auto) 21.6 Nicholas % (Auto) 7.9 Eos % (Auto) 0.9 Baso % (Auto) 1.7 Neut # (Auto) 5.6 Lymph # (Auto) 1.8 Nicholas # (Auto) 0.7 Eos # (Auto) 0.1 Baso # (Auto) 0.1 WBC Differential . Differential Comment . PT INR APTT Sodium 137 Potassium 2.7 L* Chloride 97 L Carbon Dioxide 30.0 Anion Gap 10 BUN 3 L Creatinine 0.73 Estimated GFR Greater than 89 Random Glucose 102 Calcium 8.0 L Magnesium Total Bilirubin 0.8 AST 53 H ALT 48 Alkaline Phosphatase 87 Troponin I Less than 0.02 L B-Natriuretic Peptide Total Protein 7.1 Albumin 3.0 L 10/28/17 10/28/17 10/29/17 19:30 20:37 03:10 CBC w Diff Auto diff final WBC 8.5 RBC 3.49 L Hgb 13.8 Hct 39.8 MCV 113.9 H MCH 39.6 H MCHC 34.8 RDW 15.7 Plt Count 213 MPV 7.8 Neut % (Auto) 72.5 H Lymph % (Auto) 20.2 Nicholas % (Auto) 4.5 Eos % (Auto) 1.2 Baso % (Auto) 1.6 Neut # (Auto) 6.2 Lymph # (Auto) 1.7 Nicholas # (Auto) 0.4 Eos # (Auto) 0.1 Baso # (Auto) 0.1 WBC Differential . Differential Comment . PT 10.8 INR 1.1 APTT 22.9 L Sodium Potassium Chloride Carbon Dioxide Anion Gap BUN Creatinine Estimated GFR Random Glucose Calcium Magnesium Total Bilirubin AST ALT Alkaline Phosphatase Troponin I B-Natriuretic Peptide 9 Total Protein Albumin 10/29/17 10/29/17 10/29/17 03:10 03:10 09:21 CBC w Diff WBC RBC Hgb Hct MCV MCH MCHC RDW Plt Count MPV Neut % (Auto) Lymph % (Auto) Nicholas % (Auto) Eos % (Auto) Baso % (Auto) Neut # (Auto) Lymph # (Auto) Nicholas # (Auto) Eos # (Auto) Baso # (Auto) WBC Differential Differential Comment PT INR APTT 38.7 H D Sodium 135 L 138 Potassium 2.8 L* 3.1 L Chloride 96 L 96 L Carbon Dioxide 32.5 H 32.6 H Anion Gap 7 9 BUN 6 L 5 L Creatinine 0.72 0.86 Estimated GFR Greater than 89 Greater than 89 Random Glucose 111 H 139 H Calcium 7.6 L 7.8 L Magnesium 1.5 Total Bilirubin 1.4 H AST 39 H ALT 42 Alkaline Phosphatase 81 Troponin I B-Natriuretic Peptide Total Protein 6.3 L D Albumin 2.7 L 10/29/17 10:42 CBC w Diff WBC RBC Hgb Hct MCV MCH MCHC RDW Plt Count MPV Neut % (Auto) Lymph % (Auto) Nicholas % (Auto) Eos % (Auto) Baso % (Auto) Neut # (Auto) Lymph # (Auto) Nicholas # (Auto) Eos # (Auto) Baso # (Auto) WBC Differential Differential Comment PT INR APTT 35.9 H Sodium Potassium Chloride Carbon Dioxide Anion Gap BUN Creatinine Estimated GFR Random Glucose Calcium Magnesium Total Bilirubin AST ALT Alkaline Phosphatase Troponin I B-Natriuretic Peptide Total Protein Albumin - Imaging Impressions Venous Doppler Study 10/28/17 15:14 CONCLUSION: 1. Occlusive deep venous thrombus within the left proximal, main and distal superficial femoral, peroneal and posterior tibial veins and nonocclusive deep venous thrombus within the left popliteal vein. Chest CTA 10/28/17 16:20 CONCLUSION: 1. Bilateral pulmonary emboli. 2. No mass or infiltrate. Caprini VTE Risk Assessment Caprini VTE Risk Assessment: Moderate/High Risk (score >= 2) Caprini Risk Assessment Model: Point Value = 1 Point Value = 2 Point Value = 3 Point Value = 5 Age 41-60 Minor surgery BMI > 25 kg/m2 Swollen legs Varicose veins or History of unexplained or recurrent spontaneous Oral contraceptives or hormone replacement Sepsis (< 1 month) Serious lung disease, including pneumonia (< 1 month) Abnormal pulmonary function Acute myocardial infarction Congestive heart failure (< 1 month) History of inflammatory bowel disease Medical patient at bed rest Age 61-74 Arthroscopic surgery Major open surgery (> 45 min) Laparoscopic surgery (> 45 min) Malignancy Confined to bed (> 72 hours) Immobilizing plaster cast Central venous access Age >= 75 History of VTE Family history of VTE Factor V Leiden Prothrombin [id number] Lupus anticoagulant Anticardiolipin antibodies Elevated serum homocysteine Heparin-induced thrombocytopenia Other congenital or acquired thrombophilia Stroke (< 1 month) Elective arthroplasty Hip, pelvis, or leg fracture Acute spinal cord injury (< 1 month) Prophylaxis Regimen: Total Risk Factor Score Risk Level Prophylaxis Regimen 0-1 Low Early ambulation 2 Moderate Order ONE of the following: *Sequential Compression Device (SCD) *Heparin 5000 units SQ BID 3-4 Higher Order ONE of the following medications: *Heparin 5000 units SQ TID *Enoxaparin/Lovenox 40 mg SQ daily (WT < 150 kg, CrCl > 30 mL/min) *Enoxaparin/Lovenox 30 mg SQ daily (WT < 150 kg, CrCl > 10-29 mL/min) *Enoxaparin/Lovenox 30 mg SQ BID (WT < 150 kg, CrCl > 30 mL/min) AND/OR *Sequential Compression Device (SCD) 5 or more Highest Order ONE of the following medications: *Heparin 5000 units SQ TID (Preferred with Epidurals) *Enoxaparin/Lovenox 40 mg SQ daily (WT < 150 kg, CrCl > 30 mL/min) *Enoxaparin/Lovenox 30 mg SQ daily (WT < 150 kg, CrCl > 10-29 mL/min) *Enoxaparin/Lovenox 30 mg SQ BID (WT < 150 kg, CrCl > 30 mL/min) AND *Sequential Compression Device (SCD) Assessment and Plan - Plan This is a 32-year-old male with no significant past medical history. He presents to the emergency department complaining of left lower extremity pain and swelling which started about 3 weeks ago. Venous Doppler shows occlusive deep venous thrombus within the left proximal, main and distal superficial femoral, peroneal and posterior tibial veins and nonocclusive deep venous thrombus within the left popliteal vein. Chest CTA with bilateral pulmonary emboli DVT in the left lower extremity and bilateral PE. No provoking factors. He has been started on heparin drip. Obtain hypercoagulable labs. He needs to be transitioned to oral anticoagulants which patient agrees pending hematology evaluation. Consult hematology. Persistent hypokalemia likely related to alcohol abuse. This is improving continue aggressive replacement as well as correction of magnesium Alcohol and tobacco abuse. Counseled. CIWA protocol. Refused nicotinic patch. Discharge Planning: When cleared by hematology
[2017-10-29] MEDS: Magnesium Oxide 400 MG Tablet PO SCH ×2 (12:36→20:32)
--- NOTE | 2017-10-29 20:19 | MB ---
cc: Cassidy Reese MD DATE: 10/29/2017 CHIEF COMPLAINT: 1. VTE. 2. Hypercoagulable workup. HISTORY OF PRESENT ILLNESS: The patient is a 32-year-old man with no significant past medical history aside from tobaccoism, who presented to the emergency department with a several week history of left lower extremity pain and swelling. He denies having any history of surgery, infection, recent hospitalization, trauma leading up to his hospital presentation. He also denies any recent history of travel. Five months prior to hospital admission, he developed lower back pain and was diagnosed with a herniated disk. He initially had a radiculopathy, but that has resolved. Workup of his symptoms in the emergency department included imaging studies with CTA showing filling defects within the right middle lobe and right lower lobe pulmonary arteries, tiny filling defect in the left lower lobe anterior segment. The left and the right pulmonary arteries are normal in diameter. He also had a venous Doppler study, which showed occlusive thrombus within the left proximal main and distal superficial femoral peroneal, and posterior tibial veins and nonocclusive deep venous thrombosis within the left popliteal vein. PAST MEDICAL HISTORY: History of herniated disk with radiculopathy symptoms that has resolved. PAST SURGICAL HISTORY: Reconstruction of left big toe at the age of 14. FAMILY HISTORY: Mom with a history of breast cancer initially in her 40s and then recurrence 10 years later. She is currently cancer free. Dad with a history of bladder cancer, status post treatment. SOCIAL HISTORY: The patient smokes about half a pack a day. He intermittently drinks alcohol. He works in [employer]. REVIEW OF SYSTEMS: As above in the HPI. All others negative. PHYSICAL EXAMINATION: VITAL SIGNS: Temperature 96.6, pulse rate 79, respiratory rate 18, blood pressure 122/75. GENERAL: Well-developed, well-nourished man in no distress, resting comfortably in bed. HEENT: Normocephalic, atraumatic. Eyes: PERRLA. EOMI. NECK: Supple. No palpable lymphadenopathy. CARDIOVASCULAR: Regular rate and rhythm. No murmurs. RESPIRATORY: Clear to auscultation bilaterally. ABDOMEN: Soft, nontender, nondistended, positive bowel sounds. EXTREMITIES: Left lower extremity with swelling compared to right. Erythema and warm to touch. There is also tenderness that is present. NEUROLOGIC: Grossly nonfocal. PSYCHIATRIC: Appropriate mood and affect. Expressed understanding of our conversation today. ASSESSMENT AND PLAN: 1. Venous thromboembolism with bilateral pulmonary emboli in the left lower extremity, extensive deep venous thrombosis. This is an unprovoked clot as the patient has otherwise been active and healthy aside from his leg pain with no recent travel, surgery, hospitalization, illnesses. Discussed treatment of venous thromboembolism with the patient. Discussed given male sex and unprovoked clot, he would need to be on lifelong anticoagulation. Discussed options for anticoagulation to include warfarin, apixaban and rivaroxaban. Discussed risks, benefits, and side effects of each medication. Discussed with warfarin that patient would have to watch his diet and have his INR checked. Discussed that studies when compared apixaban to warfarin that there is less major bleeding with warfarin. Discussed that there is a reversal agent, Andexxa for both apixaban or rivaroxaban. However, this is not yet widely available. Discussed that there is a reversal agent to warfarin. The patient and I agreed on proceeding forward with apixaban in the outpatient setting. This is to be given at 10 mg p.o. twice a day for 7 days, followed by 5 mg p.o. daily. Discussed his lack of insurance. Discussed that he would absolutely need to talk with our case management team prior to discharge to get paperwork filed to obtain insurance. Discussed that he would need to get contact numbers for social work and case management as well as our financial counseling team so that he could follow up on this in the outpatient setting. He will also need to have a supply of apixaban pills prior to leaving the hospital and a way to get further refills. We will request followup in our hematology clinic. Discussed risk of bleeding with anticoagulation. 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 The patient expressed understanding. Cassidy Reese MD ELIZABET/ct , 06:44 PM , 06:53 PM
[2017-10-30 00:33] VITALS: O2SAT 98
[2017-10-30] MEDS: Heparin Drip 25,000 UNIT/250 ML BAG IV.CONT PRN (00:43)
[2017-10-30 06:22] LABS: Chloride 100 meq/L (98-107); Potassium 3.3 meq/L (3.5-5.1); Sodium 138 meq/L (136-145)
[2017-10-30 06:28] LABS: Calcium 7.9 mg/dL (8.5-10.1)
[2017-10-30 06:29] LABS: Albumin 2.5 g/dL (3.4-5.0); Anion Gap 6 meq/L (5-15); Blood Urea Nitrogen 4 mg/dL (7-18); Glucose,Random 105 mg/dL (74-106); Hematocrit 38.1 % (39.0-51.0); Hemoglobin 13.2 gm/dL (13.0-17.0); Magnesium 1.8 mg/dL (1.5-2.5); Mean Corpuscular HGB Conc 34.8 % (32.0-36.0); Mean Corpuscular Hemoglobin 39.3 pg (27.0-34.0); Mean Corpuscular Volume 113.2 fL (80.0-100.0); Mean Platelet Volume 8.1 fL (7.0-11.0); Platelet Count 210 th/mm3 (150-450); Red Blood Count 3.37 mil/mm3 (4.50-5.90); Red Cell Distribution Width 16.3 % (11.6-17.2); White Blood Count 8.2 th/mm3 (4.0-11.0)
[2017-10-30 06:32] LABS: Alanine Aminotransferase 33 U/L (12-78); Aspartate Aminotransferase 29 U/L (15-37); Glomerular Filtration Rate Greater Than 89 mL/min (>89)
[2017-10-30 06:33] LABS: Total Protein 5.9 g/dL (6.4-8.2)
[2017-10-30 06:35] LABS: Alkaline Phosphatase 68 U/L (45-117)
[2017-10-30 08:18] VITALS: BP 134/91; PULSE 84; RESP 19; TEMP 97.1
[2017-10-30] MEDS: Magnesium Oxide 400 MG Tablet PO SCH (08:29)
[2017-10-30] MEDS ORDERED: Folic Acid 1 MG Tablet PO SCH (09:00)
[2017-10-30] MEDS ORDERED: Multivitamin/Minerals Therapeutic Tablet PO SCH (09:00)
--- NOTE | 2017-10-30 09:17 | P.PNONC ---
Subjective Interval history: Patient seen and examined this morning, vital signs, labs, medications, imaging studies and coags reviewed. Subjectively; he reports his left leg continues to feel swollen. He has remained on a heparin drip overnight. Patient had some questions regarding filling Xarelto tablets and the potential cost. He requests contact information for our office for outpatient follow-up. He denies difficulty breathing at this time, denies chest pain and denies overt bleeding. Objective Vital Signs/Intake & Output: Vital Signs 10/29/17 12:00 10/29/17 16:00 10/29/17 20:00 Temperature 97.9 F 96.6 F L Pulse Rate 91 H 79 88 Respiratory Rate 18 18 20 Blood Pressure 113/92 H 122/75 126/81 Pulse Oximetry 98 98 99 10/30/17 00:00 10/30/17 08:00 Temperature 97.9 F 97.1 F L Pulse Rate 95 H 84 Respiratory Rate 20 19 Blood Pressure 112/79 134/91 H Pulse Oximetry 98 98 Intake & Output 10/29/17 10/30/17 10/30/17 18:59 06:59 18:59 Intake Total 1250 / 1250 1250 / 1250 Balance 1250 / 1250 1250 / 1250 Weight 98.3 kg Intake: IV 1250 / 1250 250 / 250 Heparin/D5W 25,000 U/250 mL 25, 250 / 250 250 / 250 000 unit In 250 ml @ Per Protocol IV.CONT TITRATE PRN Rx #:[id number] NS Inj 1,000 ML @ 100 mls/hr IV 1000 / 1000 .CONT .Q10H USMAN Rx#:[id number] Oral 1000 / 1000 Other: # Voids 3 5 Date of Last Bowel Movement 10/28/17 Result Diagrams: 10/30/17 04:50 10/30/17 04:50 Laboratory Results: Laboratory Results - last 24 hr 10/29/17 10/29/17 10/29/17 09:21 10:42 17:55 WBC RBC Hgb Hct MCV MCH MCHC RDW Plt Count MPV APTT 35.9 H 39.3 H Sodium 138 Potassium 3.1 L Chloride 96 L Carbon Dioxide 32.6 H Anion Gap 9 BUN 5 L Creatinine 0.86 Estimated GFR Greater than 89 Random Glucose 139 H Calcium 7.8 L Magnesium 1.5 Total Bilirubin AST ALT Alkaline Phosphatase Total Protein Albumin 10/30/17 10/30/17 10/30/17 02:30 04:50 04:50 WBC 8.2 RBC 3.37 L Hgb 13.2 Hct 38.1 L MCV 113.2 H MCH 39.3 H MCHC 34.8 RDW 16.3 Plt Count 210 MPV 8.1 APTT 37.1 H Sodium 138 Potassium 3.3 L Chloride 100 Carbon Dioxide 32.0 Anion Gap 6 BUN 4 L Creatinine 0.66 Estimated GFR Greater than 89 Random Glucose 105 Calcium 7.9 L Magnesium 1.8 Total Bilirubin 0.8 AST 29 ALT 33 Alkaline Phosphatase 68 Total Protein 5.9 L Albumin 2.5 L Medications: Active Medications Generic Name Dose Route Start Last Admin Trade Name Freq PRN Reason Stop Dose Admin Hydrocodone Bitart/Acetaminophen 1 tab 10/28/17 22:51 10/29/17 19:09 [place] 5/325 PO 1 tab Q4H PRN Administration pain > 4 Folic Acid 1 mg 10/30/17 09:00 10/30/17 08:29 Folic Acid PO 11/04/17 08:59 1 mg DAILY USMAN Administration Heparin Sodium/Dextrose 25,000 unit in 250 mls @ 0 mls/hr 10/28/17 19:51 03:30 Heparin/D5w 25,000 U/250 Ml IV.CONT 2,100 units/hr TITRATE PRN 21 mls/hr Per Protocol Titration Protocol Per Protocol Magnesium Oxide 400 mg 10/29/17 12:00 10/30/17 08:29 Mag-Ox PO 400 mg BID USMAN Administration Multivitamins/Minerals 1 tab 10/30/17 09:00 10/30/17 08:29 Theragran-M PO 11/04/17 08:59 1 tab DAILY USMAN Administration Thiamine HCl 100 mg 10/30/17 09:00 10/30/17 08:29 Vitamin B1 PO 100 mg DAILY USMAN Administration Objective Remarks: GENERAL: Young man, sitting up in bed, no acute distress, well-nourished, well- developed patient. SKIN: Warm and dry. HEAD: Normocephalic. EYES: No scleral icterus. No injection or drainage. NECK: Supple, trachea midline. No JVD or lymphadenopathy. LYMPHATIC: No adenopathy. CARDIOVASCULAR: Regular rate and rhythm without murmurs. RESPIRATORY: Breath sounds equal bilaterally. No accessory muscle use. GASTROINTESTINAL: Abdomen soft, non-tender, nondistended. EXTREMITIES: Edema of the left leg noted, no erythema noted, slight tenderness of the calf. MUSCULOSKELETAL: Adequate muscle tone. NEUROLOGICAL: No obvious focal deficit. Awake, alert, and oriented x3. PSYCHIATRIC: Appropriate mood and affect; insight and judgment normal. Assessment/Plan - Plan Mr. Hernandez is a 32-year-old male who presents the hospital with left leg pain and subjective symptoms of difficulty breathing with exertion. He was found to have a left lower extremity deep venous thrombosis associated with small pulmonary emboli involving second order blood vessels. He has been initiated on heparin infusion for therapeutic anticoagulation. A hyper-coag workup has been ordered, the results are pending. Plan: 1. May transition from heparin to oral Xarelto. I have advised the patient to initially start with 15 mg twice daily for the first 21 days which is the loading dose. Following which he will be transitioned to 20 mg once daily; I emphasized the need to take the maintenance dosing of Xarelto with his evening meal which should be the largest meal of the day. 2. Hypercoagulable workup: Results will not be available for full review for at least 1-2 weeks. Have advised he follow-up with Dr. Reese did review the results of his hypercoagulable workup in 1-2 weeks. 3. The patient is clear for discharge from an oncologic standpoint once he is initiated on oral Xarelto. Patient was counseled on monitoring for overt bleeding and to avoid high risk activity so as to avoid injury and potentially catastrophic bleeding.
--- NOTE | 2017-10-30 09:47 | P.PN ---
Subjective Interval history: Follow-up DVT and PE. He is doing okay ambulating in the hallway. Tolerating anticoagulation agrees with transition to Xarelto. Aware he cannot be drinking again no signs of withdrawal. Discussed with hematology Physical Exam Vital signs: Vital Signs 10/29/17 12:00 10/29/17 16:00 10/29/17 20:00 Temperature 97.9 F 96.6 F L Pulse Rate 91 H 79 88 Respiratory Rate 18 18 20 Blood Pressure 113/92 H 122/75 126/81 Pulse Oximetry 98 98 99 10/30/17 00:00 10/30/17 08:00 Temperature 97.9 F 97.1 F L Pulse Rate 95 H 84 Respiratory Rate 20 19 Blood Pressure 112/79 134/91 H Pulse Oximetry 98 98 Intake & Output 10/29/17 10/30/17 10/30/17 18:59 06:59 18:59 Intake Total 1250 / 1250 1250 / 1250 186 / 186 Balance 1250 / 1250 1250 / 1250 186 / 186 Weight 98.3 kg Intake: IV 1250 / 1250 250 / 250 186 / 186 Heparin/D5W 25,000 U/250 mL 25, 250 / 250 250 / 250 186 / 186 000 unit In 250 ml @ Per Protocol IV.CONT TITRATE PRN Rx #:[id number] NS Inj 1,000 ML @ 100 mls/hr IV 1000 / 1000 .CONT .Q10H USMAN Rx#:[id number] Oral 1000 / 1000 Other: # Voids 3 5 Date of Last Bowel Movement 10/28/17 Narrative: GENERAL: Well-developed, well-nourished in no distress SKIN: Warm and dry. CARDIOVASCULAR: Regular rate and rhythm. RESPIRATORY: No accessory muscle use. Clear to auscultation. Breath sounds equal bilaterally. GASTROINTESTINAL: Abdomen soft, non-tender, nondistended. MUSCULOSKELETAL: Extremities without clubbing, cyanosis, or edema. No obvious deformities. Left calf is swollen and tender NEUROLOGICAL: Awake and alert. No obvious cranial nerve deficits. Motor grossly within normal limits. Five out of 5 muscle strength in the arms and legs. Normal speech. PSYCHIATRIC: Appropriate mood and affect; insight and judgment normal. Results - Labs CBC & Chem 7: 10/30/17 04:50 10/30/17 04:50 Laboratory Results - last 24 hr 0910/29/17 10/29/17 09:21 10:42 17:55 WBC RBC Hgb Hct MCV MCH MCHC RDW Plt Count MPV APTT 35.9 H 39.3 H Sodium 138 Potassium 3.1 L Chloride 96 L Carbon Dioxide 32.6 H Anion Gap 9 BUN 5 L Creatinine 0.86 Estimated GFR Greater than 89 Random Glucose 139 H Calcium 7.8 L Magnesium 1.5 Total Bilirubin AST ALT Alkaline Phosphatase Total Protein Albumin 10/30/17 10/30/17 10/30/17 02:30 04:50 04:50 WBC 8.2 RBC 3.37 L Hgb 13.2 Hct 38.1 L MCV 113.2 H MCH 39.3 H MCHC 34.8 RDW 16.3 Plt Count 210 MPV 8.1 APTT 37.1 H Sodium 138 Potassium 3.3 L Chloride 100 Carbon Dioxide 32.0 Anion Gap 6 BUN 4 L Creatinine 0.66 Estimated GFR Greater than 89 Random Glucose 105 Calcium 7.9 L Magnesium 1.8 Total Bilirubin 0.8 AST 29 ALT 33 Alkaline Phosphatase 68 Total Protein 5.9 L Albumin 2.5 L - Imaging ITS Impressions Venous Doppler Study 10/28/17 15:14 CONCLUSION: 1. Occlusive deep venous thrombus within the left proximal, main and distal superficial femoral, peroneal and posterior tibial veins and nonocclusive deep venous thrombus within the left popliteal vein. Chest CTA 10/28/17 16:20 CONCLUSION: 1. Bilateral pulmonary emboli. 2. No mass or infiltrate. - Procedures none Assessment and Plan - Plan This is a 32-year-old male with no significant past medical history. He presents to the emergency department complaining of left lower extremity pain and swelling which started about 3 weeks ago. Venous Doppler shows occlusive deep venous thrombus within the left proximal, main and distal superficial femoral, peroneal and posterior tibial veins and nonocclusive deep venous thrombus within the left popliteal vein. Chest CTA with bilateral pulmonary emboli DVT in the left lower extremity and bilateral PE. No provoking factors. Stable transition to Xarelto discontinue heparin drip. Follow-up hypercoagulable labs. Avoid contact sports and alcohol. Follow-up with hematology outpatient Persistent hypokalemia likely related to alcohol abuse. This is improving continue aggressive replacement as well as correction of magnesium Alcohol and tobacco abuse. Counseled. CIWA protocol. Refused nicotinic patch. Discharge Planning: Discharge patient to home Condition on discharge: Improved Regular Diet as tolerated Ad Adrienne activity no driving Rx written: Xarelto, folic acid and thiamine Follow-up with primary care physician and hematology
[2017-10-30] MEDS ORDERED: Rivaroxaban 15 MG Tablet PO SCH (10:00)
[2017-11-01 23:53] LABS: Homocysteine (Cardiovascular) 20.1 umol/L (<11.4)
[2017-11-02 17:52] LABS: Dil Russell Viper Venom Conf ( ND (NEGATIVE); Dil Russell Viper Venom Time M ND (CORRECTED); Lupus Anticoagulant PTT Screen 46 seconds (< OR = 40)
[2017-11-02 23:54] LABS: Activated Protein C Resistance 1.5 ratio (> OR = 2.1)
[2017-11-03 17:53] LABS: Factor V Leiden Mutation Heterozygous (Negative); Protein C Antigen 45 % (70-150)
== END 2017-10-30 10:29 | disposition home or self-care (01) ==
LOC: PHED 14:42 → PHEDA 20:15 → INTOOBSV 20:15 → PH3 21:26
PROVIDERS: ADMIT Internal Medicine; ATTEND Internal Medicine

== ENCOUNTER 2018-01-26 16:02 | Inpatient (IN) ==
--- NOTE | 2018-01-26 16:51 | ED ---
HPI General Chief complaint: Extremity Problem,Nontraumatic Stated complaint: Poss blood clot in left groin area Time Seen by Provider: 01/26/18 16:36 History of Present Illness HPI Narrative: This patient complains of pain and swelling in his left leg. He reports history of factor V Leiden mutation and multiple clots in his history. He supposed to be taking Xarelto but could not afford it. He has been out of it for 6 weeks. Discomfort is in the proximal inner left thigh. It radiates toward the knee. No injury. No fever. Patient admits to being a heavy alcohol consumer. He had some earlier today. He denies IV drug use. Symptoms are moderately severe. Duration 3 days. Related Data Home Medications Medication Instructions Recorded Confirmed No Known Home Medications 01/26/18 01/26/18 Allergies Allergy/AdvReac Type Severity Reaction Status Date / Time No Known Allergies Allergy Verified 01/26/18 16:17 Review of Systems ROS: all other systems reviewed are negative [facility] Medical History Medical History Hx of deep venous thrombosis (Acute) Herniated disc (Acute) Surgical History Surgical History History of toe surgery (Acute) Family History Family History Other Family history non-contributory Social History Social History Substance History: No History of Abuse Second Hand Smoke Exposure: No Smoking Status: Current every day smoker Tobacco Type: Cigarettes How Often Do You Have a Drink Containing Alcohol: 2 to 4 times a month Immunization History Tetanus Immunization: Unsure Exam Narrative Exam Narrative: GENERAL: Well-nourished, well-developed patient in no apparent distress. SKIN: Focused skin assessment reveals no rash and nodules. Skin is Warm and dry. HEAD: Atraumatic. Normocephalic. EYES: Pupils equal and round. No scleral icterus. No injection or drainage. ENT: No nasal bleeding or discharge. Mucous membranes pink and moist. NECK: Trachea midline. No JVD. CARDIOVASCULAR: Regular rate and rhythm. No murmur appreciated. Tachycardic 130 RESPIRATORY: No accessory muscle use. Clear to auscultation. Breath sounds equal bilaterally. GASTROINTESTINAL: Abdomen soft, non-tender, nondistended. Hepatic and splenic margins not palpable. MUSCULOSKELETAL: No obvious deformities. No clubbing. No cyanosis. There is some erythema and tenderness in the proximal inner left thigh. There is a bit of swelling of the thigh and calf regions. NEUROLOGICAL: Awake and alert. No obvious cranial nerve deficits. Motor grossly within normal limits. Normal speech. PSYCHIATRIC: Appropriate mood and affect; insight and judgment reduced . Course Initial Documented Vital Signs Temperature 99.3 F 01/26/18 16:09 Pulse Rate 137 H 01/26/18 16:09 Respiratory Rate 18 01/26/18 16:09 Blood Pressure 152/83 H 01/26/18 16:09 Pulse Oximetry 96 01/26/18 16:09 Last Documented Vital Signs Temperature 99.3 F 01/26/18 16:09 Pulse Rate 129 H 01/26/18 17:35 Respiratory Rate 18 18 17:35 Blood Pressure 143/80 H 01/26/18 17:21 Pulse Oximetry 95 01/26/18 17:21 Medical Decision Making MDM Narrative Medical decision making narrative: 32-year-old male with hypercoagulable state and ran out of his anticoagulants now complaining of symptoms suggesting left leg DVT. I have ordered IV placement and lab studies and will get an ultrasound of the left leg. We will do EKG and telemetry monitoring and consider alternative diagnosis to explain his tachycardia such as alcohol withdrawal or PE. Alcohol level is 79, I doubt withdrawal. He was actively wheezing so I gave him 2 nebulizer treatments. His electrolytes are off. CBC normal. Ultrasound shows extensive clotting of the left leg. Case reviewed with the hospitalist will admit. I have initiated heparin drip and replaced his potassium. He will decide if it is worth pursuing CTA or not. It is not going to change emergent management Medical Screen Exam Complete: Yes Emergency Medical Condition: Yes Differential Diagnosis Differential Diagnosis: DVT, PE, alcohol withdrawal Medical Records Medical records reviewed: Yes I reviewed the patient's medical records. Lab Data Lab results reviewed: Yes I reviewed the patient's lab results. Lab results narrative: CBC normal. Sodium and potassium are low Result diagrams: 01/26/18 16:58 01/26/18 16:58 Lab Results 01/26/18 01/26/18 01/26/18 Range/Units 16:58 16:58 16:58 CBC w Diff Auto diff final WBC 9.7 (4.0-11.0) th/mm3 RBC 4.09 L (4.50-5.90) mil/mm3 Hgb 15.7 (13.0-17.0) gm/dL Hct 45.3 (39.0-51.0) % MCV 110.9 H (80.0-100.0) fL MCH 38.5 H (27.0-34.0) pg MCHC 34.7 (32.0-36.0) % RDW 13.2 (11.6-17.2) % Plt Count 208 (150-450) th/mm3 MPV 8.4 (7.0-11.0) fL Neut % (Auto) 76.4 H (16.0-70.0) % Lymph % (Auto) 13.4 (9.0-44.0) % Morgan % (Auto) 8.5 H (0.0-8.0) % Eos % (Auto) 0.6 (0.0-4.0) % Baso % (Auto) 1.1 (0.0-2.0) % Neut # (Auto) 7.4 (1.8-7.7) th/mm3 Lymph # (Auto) 1.3 (1.0-4.8) th/mm3 Morgan # (Auto) 0.8 (0.0-0.9) th/mm3 Eos # (Auto) 0.1 (0.0-0.4) th/mm3 Baso # (Auto) 0.1 (0.0-0.2) th/mm3 WBC Differential . Differential Comment . PT 10.6 (9.8-11.6) sec INR 1.0 Ratio APTT 26.1 (23.4-31.7) sec Sodium 133 L (136-145) meq/L Potassium 2.9 L* (3.5-5.1) meq/L Chloride 93 L (98-107) meq/L Carbon Dioxide 28.4 (21.0-32.0) meq/L Anion Gap 12 (5-15) meq/L BUN 3 L (7-18) mg/dL Creatinine 0.84 (0.60-1.30) mg/dL Estimated GFR Greater than 89 (>89) mL/min Random Glucose 118 H (74-106) mg/dL Calcium 8.1 L (8.5-10.1) mg/dL Total Bilirubin 1.0 (0.2-1.0) mg/dL AST 119 H (15-37) U/L ALT 102 H (12-78) U/L Alkaline Phosphatase 106 (45-117) U/L Total Protein 7.3 (6.4-8.2) g/dL Albumin 2.8 L (3.4-5.0) g/dL Serum Alcohol (0-5) mg/dL 1818 Range/Units 16:58 CBC w Diff WBC (4.0-11.0) th/mm3 RBC (4.50-5.90) mil/mm3 Hgb (13.0-17.0) gm/dL Hct (39.0-51.0) % MCV (80.0-100.0) fL MCH (27.0-34.0) pg MCHC (32.0-36.0) % RDW (11.6-17.2) % Plt Count (150-450) th/mm3 MPV (7.0-11.0) fL Neut % (Auto) (16.0-70.0) % Lymph % (Auto) (9.0-44.0) % Morgan % (Auto) (0.0-8.0) % Eos % (Auto) (0.0-4.0) % Baso % (Auto) (0.0-2.0) % Neut # (Auto) (1.8-7.7) th/mm3 Lymph # (Auto) (1.0-4.8) th/mm3 Morgan # (Auto) (0.0-0.9) th/mm3 Eos # (Auto) (0.0-0.4) th/mm3 Baso # (Auto) (0.0-0.2) th/mm3 WBC Differential Differential Comment PT (9.8-11.6) sec INR Ratio APTT (23.4-31.7) sec Sodium (136-145) meq/L Potassium (3.5-5.1) meq/L Chloride (98-107) meq/L Carbon Dioxide (21.0-32.0) meq/L Anion Gap (5-15) meq/L BUN (7-18) mg/dL Creatinine (0.60-1.30) mg/dL Estimated GFR (>89) mL/min Random Glucose (74-106) mg/dL Calcium (8.5-10.1) mg/dL Total Bilirubin (0.2-1.0) mg/dL AST (15-37) U/L ALT (12-78) U/L Alkaline Phosphatase (45-117) U/L Total Protein (6.4-8.2) g/dL Albumin (3.4-5.0) g/dL Serum Alcohol 79 H (0-5) mg/dL Imaging Data Attestation: I personally reviewed and interpreted this imaging study as follows : My impression: Ultrasound shows extensive DVT of the left leg Radiologist's impression: Venous Doppler Study 01/26/18 16:43 CONCLUSION: 1. Extensive DVT as noted previously. Chest X-Ray 01/26/18 16:46 CONCLUSION: Negative examination. ECG Data EKG Prior to Arrival: No Attestation: I personally reviewed and interpreted this ECG as follows: Prior ECG tracings: not available for review Interpretation: EKG shows sinus tachycardia. Rate is 120. [place] and [place] interval are normal. No ectopy or ST elevation. Discharge Plan Discharge Disposition Patient Disposition: ED Admit(ED Internal Use Only) Discharge Order Discharge Orders: ED Use Only Admit Order (Routine); Ordered 01/26/18 Ordered By: Giancarlo Santos Discharge Details Diagnosis: Deep vein thrombosis of lower extremity, Factor 5 Leiden mutation, heterozygous Physicians Team ED Provider: Giancarlo Santos Primary Care Provider: Primary Care Physici,No Rxs /Orders / Referrals /Forms Prescriptions: No Action No Known Home Medications RF: 0 Discharge Interventions Interventions: Vital Signs Last Done: 01/26/18 17:21 Status ED Status: With Doctor
[2018-01-26] MEDS ORDERED: Sod Chloride 0.9% Inj 1,000 ML IV.SIG ONE (16:57)
--- NOTE | 2018-01-26 17:14 | XR ---
EXAM DATE: 01/26/2018 5:12 PM EST AGE/SEX: 32 years / Male INDICATIONS: Possible blood clot in left groin, shortness of breath. CLINICAL DATA: This is the patient's initial encounter. Patient reports that signs and symptoms have been present for 2 days and indicates a pain score of 0/10. MEDICAL/SURGICAL HISTORY: . Factor five Leiden. None. COMPARISON: No prior exams available for comparison. FINDINGS: A single AP view of the chest demonstrates the lungs to be symmetrically aerated without evidence of mass, infiltrate or effusion. The cardiomediastinal contours are unremarkable. Osseous structures a re intact. CONCLUSION: Negative examination. Electronically signed by: Emory Garrison MD Board Certified Radiologist 01/26/2018 5:12 PM EST
[2018-01-26 17:21] LABS: Activated Partial Thrombo Time 26.1 sec (23.4-31.7); Prothrombin Time 10.6 sec (9.8-11.6)
[2018-01-26 17:24] LABS: Baso # (Auto) 0.1 th/mm3 (0.0-0.2); Baso % (Auto) 1.1 % (0.0-2.0); Eos # (Auto) 0.1 th/mm3 (0.0-0.4); Eos % (Auto) 0.6 % (0.0-4.0); Hematocrit 45.3 % (39.0-51.0); Hemoglobin 15.7 gm/dL (13.0-17.0); Lymph # (Auto) 1.3 th/mm3 (1.0-4.8); Lymph % (Auto) 13.4 % (9.0-44.0); Mean Corpuscular HGB Conc 34.7 % (32.0-36.0); Mean Corpuscular Hemoglobin 38.5 pg (27.0-34.0); Mean Corpuscular Volume 110.9 fL (80.0-100.0); Mean Platelet Volume 8.4 fL (7.0-11.0); Mono # (Auto) 0.8 th/mm3 (0.0-0.9); Mono % (Auto) 8.5 % (0.0-8.0); Neut # (Auto) 7.4 th/mm3 (1.8-7.7); Neut % (Auto) 76.4 % (16.0-70.0); Platelet Count 208 th/mm3 (150-450); Red Blood Count 4.09 mil/mm3 (4.50-5.90); Red Cell Distribution Width 13.2 % (11.6-17.2); White Blood Count 9.7 th/mm3 (4.0-11.0)
[2018-01-26 17:32] LABS: Alanine Aminotransferase 102 U/L (12-78); Albumin 2.8 g/dL (3.4-5.0); Alkaline Phosphatase 106 U/L (45-117); Anion Gap 12 meq/L (5-15); Aspartate Aminotransferase 119 U/L (15-37); Blood Urea Nitrogen 3 mg/dL (7-18); Calcium 8.1 mg/dL (8.5-10.1); Carbon Dioxide 28.4 meq/L (21.0-32.0); Chloride 93 meq/L (98-107); Glomerular Filtration Rate Greater Than 89 mL/min (>89); Glucose,Random 118 mg/dL (74-106); Sodium 133 meq/L (136-145); Total Protein 7.3 g/dL (6.4-8.2)
[2018-01-26 17:36] LABS: Potassium 2.9 meq/L (3.5-5.1)
[2018-01-26 17:52] VITALS: RESP 18
--- NOTE | 2018-01-26 18:26 | US ---
EXAM DATE: 01/26/2018 6:17 PM EST AGE/SEX: 32 years / Male INDICATIONS: Swelling and pain within the left leg with prior DVT on 10/28/17. CLINICAL DATA: This is the patient's subsequent encounter. Patient reports that signs and symptoms h ave been present for 4 - 6 days and indicates a pain score of 6/10. MEDICAL/SURGICAL HISTORY: Deep venous thrombosis. Herniated disc. . Toe surgery. COMPARISON: [facility], US VENOUS DOPPLER LEG LEFT, 10/28/2017. . TECHNIQUE: Venous ultrasound of both lower extremities was performed from the inguinal ligament to t he proximal calf. Real-time, color Doppler and spectral tracing, compression and augmentation techni ques were used. FINDINGS: There is occlusive thrombus from the left iliac vein through the popliteal vein. Nonocclus hosea thrombus is noted in the left peroneal and posterior tibial vein. CONCLUSION: 1. Extensive DVT as noted previously. Electronically signed by: Michael Holbrook MD Board Certified Radiologist 01/26/2018 6:24 PM EST
[2018-01-26] MEDS ORDERED: Heparin 10,000 UNITS/10 ML Vial (for IV use) IV.PUSH STA (18:40)
[2018-01-26] MEDS ORDERED: Potassium Chloride 25 MEQ Effervescent Tablet PO ONE (18:40)
[2018-01-26] MEDS ORDERED: Heparin Drip 25,000 UNIT/250 ML BAG IV.CONT PRN (18:40)
[2018-01-26] MEDS ORDERED: Bisacodyl 10 MG Supp RECTAL PRN (19:10)
[2018-01-26 21:09] LABS: Potassium 3.4 meq/L (3.5-5.1)
[2018-01-26 21:11] LABS: Calcium 7.8 mg/dL (8.5-10.1); Carbon Dioxide 28.1 meq/L (21.0-32.0)
[2018-01-26] MEDS ORDERED: Morphine Inj 4 MG/ML Vial IV.PUSH PRN (22:15)
[2018-01-26] MEDS: Senna/Docusate Sodium 8.6/50 MG Tablet PO SCH (23:45)
--- NOTE | 2018-01-27 08:42 | P.HP ---
History of Present Illness Primary Care Physician: No Primary Care Physician Chief Complaint: Left leg pain History of Present Illness: 32-year-old male with known history of factor V Leiden mutation and history of DVT/pulmonary emboli who is followed by Dr. Reese in outpatient setting. Due to the patient not been able to afford Xarelto he has not taken any medications for over a month, he thought he could make it until the first of the year when his insurance goes into effect and he will be able to afford the medication. However he started developing pain in his left leg 3 days ago and progressively got worse so he came to emergency department for evaluation. Patient had workup done and found to have extensive DVT in the left iliac vein through the popliteal vein. Patient was recommended admission in the hospital with heparin IV. Patient denies any fever, chills, shortness of breath, hemoptysis. - Diagnosis (1) Deep vein thrombosis of lower extremity Inpatient Certification: I certify that the inpatient services were ordered in accordance with Medicare regulations governing the order. This includes certification that hospital inpatient services are reasonable and necessary and in the case of services not specified as inpatient-only under 42 CFR 419.22(n), that they are appropriately provided as inpatient services in accordance to with the 2-midnight benchmark under 43 CFR 412.3(e) Review of Systems All other systems reviewed negative except as stated in HPI Cardiovascular: Reports leg pain with activity, Reports leg swelling PMFSH - History History Provided By: Patient - Medical History Medical History: Medical History (Last Updated 01/27/18 @ 08:36 by SADE Bailey) Factor V Leiden mutation Hx of deep venous thrombosis Herniated disc - Surgical History Surgical History: Surgical History (Last Reviewed 01/27/18 @ 08:37 by SADE Bailey) History of toe surgery - Family History Family History: Family History (Last Updated 01/27/18 @ 08:37 by SADE Bailey) Father Family history of bladder cancer Mother Family history of breast cancer - Tobacco History Second Hand Smoke Exposure: No Tobacco Use In Past 30 Days: Yes Smoking Status: Heavy tobacco smoker Tobacco Type: Cigarettes Packs Per Day: 1 Years Smoked: 13 - Alcohol History How Often Do You Have a Drink Containing Alcohol: 2 to 4 times a month - Substance Use History Substance History: No History of Abuse - Travel History Recent Travel in the [facility] Within the Last 8 Weeks: No Recent Travel Out of the Country Within the Last 8 Weeks: No - Immunization History Tetanus Immunization: Unsure Hx Influenza Vaccine This Season: No Medications and Allergies Active Medications: Active Medications Al Hydroxide/Mg Hydroxide (Milk Of Magnesia Liq) 30 ml PO Q12H PRN PRN Reason: Mild Constipation Bisacodyl (Dulcolax Supp) 10 mg RECTAL DAILY PRN PRN Reason: SEVERE CONSITIPATION Heparin Sodium/Dextrose (Heparin/D5w 25,000 U/250 Ml) 25,000 unit in 250 mls @ 0 mls/hr IV.CONT TITRATE PRN; Protocol PRN Reason: Per Protocol Last Admin: 01/26/18 20:20 Dose: 1,800 units/hr, 18 mls/hr Lactulose (Lactulose Liq) 30 ml PO DAILY PRN PRN Reason: SEVERE CONSITIPATION Morphine Sulfate (Morphine Inj) 2 mg IV.PUSH Q3H PRN PRN Reason: BREAKTHROUGH PAIN Last Admin: 01/26/18 23:51 Dose: 2 mg Ondansetron HCl (Zofran Inj) 4 mg IV.PUSH Q6H PRN PRN Reason: NAUSEA OR VOMITING Senna/Docusate Sodium (Chari-Colace) 1 tab PO BID [facility] Last Admin: 01/26/18 23:45 Dose: Not Given Sennosides (Senokot) 17.2 mg PO Q12H PRN PRN Reason: Moderate Constipation Sodium Chloride (Ns Flush) 2 ml IV.FLUSH BID [facility] Last Admin: 01/26/18 23:45 Dose: Not Given Sodium Chloride (Ns Flush) 2 ml IV.FLUSH PRN PRN PRN Reason: FLUSH AFTER USING IV ACCESS Last Admin: 01/26/18 23:51 Dose: 2 ml Allergies Allergy/AdvReac Type Severity Reaction Status Date / Time No Known Allergies Allergy Verified 01/26/18 16:17 Home Medications Medication Instructions Recorded Confirmed Type No Known Home Medications 01/26/18 01/26/18 History Exam Vital signs: Vital Signs 01/26/18 16:09 01/26/18 17:21 01/26/18 17:25 Temperature 99.3 F Pulse Rate 137 H 118 H 120 H Respiratory Rate 18 16 18 Blood Pressure 152/83 H 143/80 H Pulse Oximetry 96 95 01/26/18 17:35 01/26/18 20:29 01/26/18 21:16 Temperature 98.4 F Pulse Rate 129 H 116 H 114 H Respiratory Rate 18 Blood Pressure 146/78 H 137/82 Pulse Oximetry 97 97 01/26/18 22:15 01/27/18 00:00 01/27/18 04:00 Temperature 99.9 F H 98.7 F Pulse Rate 121 H 104 H 94 H Respiratory Rate 18 Blood Pressure 135/83 132/90 Pulse Oximetry 97 96 Intake & Output 01/26/18 01/27/18 01/27/18 18:59 06:59 18:59 Intake Total 1000 / 1000 90 / 90 Output Total 700 / 700 Balance 1000 / 1000 -610 / -610 Weight 99 kg 99.2 kg Intake: IV 1000 / 1000 NS Inj 1,000 ML @ Wide Open IV. 1000 / 1000 SIG BOLUS ONE Rx#:[id number] Oral 90 / 90 Output: Urine 700 / 700 Other: Date of Last Bowel Movement 01/26/18 Weight On Admission 100.3 kg Narrative: GENERAL: Well-developed, well-nourished, in no acute distress. alert and orientated HEENT: Head is normocephalic without any lesions or masses noted. Facial features are symmetric. Eyes: Pupils equal round reactive to light. Extraocular muscles are intact. Conjunctivae were clear. Oropharyngeal: Pharynx without any erythema edema. Tongue is midline without deviation. Buccal mucosa is moist without any masses or lesions NECK: Supple without any masses. Trachea midline no deviation. No JVD, no bruits are appreciated CARDIAC: Regular rhythm, regular rate. S1/S2 are heard. No murmurs gallops or rubs. LUNGS: Clear to auscultation bilaterally. No wheeze, rhonchi or rales. No use of accessory muscles on inspiration or expiration. ABDOMEN: Soft, nontender. Nondistended. Bowel sounds heard in all 4 quadrants. No organomegaly or masses. Negative rebound, negative guarding EXTREMITIES: Pulses are equal bilaterally. No cyanosis or clubbing NEUROLOGY: Mood and affect appear appropriate. Cranial nerves II through XII grossly intact. Muscle strength 5/5 in upper and lower extremities bilaterally. Deep tendon reflexes are 2+ in upper and lower extremities bilaterally. LEFT LOWER EXTREMITY: Patient does have edema noted to the left extremity as compared to the right. There is erythema noted in the medial thigh down. There is also because erythema noted down to his ankle. Results - Labs CBC & Chem 7: 01/26/18 16:58 01/26/18 20:55 Labs: Laboratory Results - last 24 hr 01/26/1818 1218 16:58 16:58 16:58 CBC w Diff Auto diff final WBC 9.7 RBC 4.09 L Hgb 15.7 Hct 45.3 MCV 110.9 H MCH 38.5 H MCHC 34.7 RDW 13.2 Plt Count 208 MPV 8.4 Neut % (Auto) 76.4 H Lymph % (Auto) 13.4 [place] % (Auto) 8.5 H Eos % (Auto) 0.6 Baso % (Auto) 1.1 Neut # (Auto) 7.4 Lymph # (Auto) 1.3 [place] # (Auto) 0.8 Eos # (Auto) 0.1 Baso # (Auto) 0.1 WBC Differential . Differential Comment . PT 10.6 INR 1.0 APTT 26.1 Sodium 133 L Potassium 2.9 L* Chloride 93 L Carbon Dioxide 28.4 Anion Gap 12 BUN 3 L Creatinine 0.84 Estimated GFR Greater than 89 Random Glucose 118 H Calcium 8.1 L Total Bilirubin 1.0 AST 119 H ALT 102 H Alkaline Phosphatase 106 Total Protein 7.3 Albumin 2.8 L Serum Alcohol 01/26/1818 01/27/18 16:58 20:55 03:00 CBC w Diff WBC RBC Hgb Hct MCV MCH MCHC RDW Plt Count MPV Neut % (Auto) Lymph % (Auto) [place] % (Auto) Eos % (Auto) Baso % (Auto) Neut # (Auto) Lymph # (Auto) [place] # (Auto) Eos # (Auto) Baso # (Auto) WBC Differential Differential Comment PT INR APTT 43.0 H D Sodium 133 L Potassium 3.4 L Chloride 95 L Carbon Dioxide 28.1 Anion Gap 10 BUN 3 L Creatinine 1.00 Estimated GFR 86 L Random Glucose 153 H Calcium 7.8 L Total Bilirubin AST ALT Alkaline Phosphatase Total Protein Albumin Serum Alcohol 79 H - Imaging Impressions Venous Doppler Study 01/26/18 16:43 CONCLUSION: 1. Extensive DVT as noted previously. Chest X-Ray 01/26/18 16:46 CONCLUSION: Negative examination. Caprini VTE Risk Assessment Caprini VTE Risk Assessment: Moderate/High Risk (score >= 2) Caprini Risk Assessment Model: Point Value = 1 Point Value = 2 Point Value = 3 Point Value = 5 Age 41-60 Minor surgery BMI > 25 kg/m2 Swollen legs Varicose veins or History of unexplained or recurrent spontaneous Oral contraceptives or hormone replacement Sepsis (< 1 month) Serious lung disease, including pneumonia (< 1 month) Abnormal pulmonary function Acute myocardial infarction Congestive heart failure (< 1 month) History of inflammatory bowel disease Medical patient at bed rest Age 61-74 Arthroscopic surgery Major open surgery (> 45 min) Laparoscopic surgery (> 45 min) Malignancy Confined to bed (> 72 hours) Immobilizing plaster cast Central venous access Age >= 75 History of VTE Family history of VTE Factor V Leiden Prothrombin [id number] Lupus anticoagulant Anticardiolipin antibodies Elevated serum homocysteine Heparin-induced thrombocytopenia Other congenital or acquired thrombophilia Stroke (< 1 month) Elective arthroplasty Hip, pelvis, or leg fracture Acute spinal cord injury (< 1 month) Prophylaxis Regimen: Total Risk Factor Score Risk Level Prophylaxis Regimen 0-1 Low Early ambulation 2 Moderate Order ONE of the following: *Sequential Compression Device (SCD) *Heparin 5000 units SQ BID 3-4 Higher Order ONE of the following medications: *Heparin 5000 units SQ TID *Enoxaparin/Lovenox 40 mg SQ daily (WT < 150 kg, CrCl > 30 mL/min) *Enoxaparin/Lovenox 30 mg SQ daily (WT < 150 kg, CrCl > 10-29 mL/min) *Enoxaparin/Lovenox 30 mg SQ BID (WT < 150 kg, CrCl > 30 mL/min) AND/OR *Sequential Compression Device (SCD) 5 or more Highest Order ONE of the following medications: *Heparin 5000 units SQ TID (Preferred with Epidurals) *Enoxaparin/Lovenox 40 mg SQ daily (WT < 150 kg, CrCl > 30 mL/min) *Enoxaparin/Lovenox 30 mg SQ daily (WT < 150 kg, CrCl > 10-29 mL/min) *Enoxaparin/Lovenox 30 mg SQ BID (WT < 150 kg, CrCl > 30 mL/min) AND *Sequential Compression Device (SCD) Assessment and Plan - Assessment (1) Deep vein thrombosis of lower extremity Code(s): I82.409 - Acute embolism and thrombosis of unspecified deep veins of unspecified lower extremity Status: Acute - Plan Left lower extremity DVT, recurrent -Patient with increased risk due to factor V Leiden mutation, patient is supposed to be on lifelong anticoagulation, however could not afford medication. -Patient is followed by Dr. Reese, hematology in outpatient setting -Patient currently on heparin IV -Start Xarelto and discontinue heparin IV -[place]/morphine for pain control -Consult case management to provide the patient with Xarelto coupon which should allow the patient to have enough medication until he gets insurance and cannot afford medication again -Patient does have appropriate outpatient follow-up with Dr. Reese. Recommended the patient follow-up within the next 7-10 days Discharge Planning: Discharge home in stable condition Activity: Ad vilma. Diet: Regular diet Medication per medication reconciliation Follow-up with primary medical doctor in 1 week (1) Deep vein thrombosis of lower extremity Qualifiers: Affected thrombotic vein of extremity: unspecified lower extremity distal vein Chronicity: unspecified Laterality: left Qualified Code(s): I82.4Z2 - Acute embolism and thrombosis of unspecified deep veins of left distal lower extremity
[2018-01-27] MEDS ORDERED: Rivaroxaban 15 MG Tablet PO ONE (08:49)
[2018-01-27] MEDS: Senna/Docusate Sodium 8.6/50 MG Tablet PO SCH (09:17)
[2018-01-27 09:41] VITALS: BP 124/86; TEMP 97.8; O2SAT 94
[2018-01-27 10:23] VITALS: PULSE 107
--- NOTE | 2018-01-27 15:41 | ECG ---
Date Performed: 01/26/2018 Time Performed: 16:59:50 PTAGE: 32 years EKG: SINUS TACHYCARDIA POSSIBLE LEFT ATRIAL ENLARGEMENT ABNORMAL RHYTHM ECG NO PREVIOUS TRACING DOCTOR: Queenie Trimble Interpretating Date/Time 01/27/2018 15:40:02
== END 2018-01-27 10:55 | disposition home or self-care (01) ==
LOC: PHED 16:02 → PHEDA 18:43 → PH3 20:54
PROVIDERS: ADMIT Hospitalist; ATTEND Hospitalist